=== PATIENT | female | born 1945 | race Caucasian/White ===

== ENCOUNTER 2021-01-02 11:42 | Inpatient (IN) | payer MEDICARE, BC ==
[~2021-01-02] VITALS: Ht 167.6 cm; Wt 55.8 kg
--- NOTE | 2021-01-02 11:56 | NUR ---
BIB FROM HOME, PER , PATIENT IS MORED DEPRESSED THAN USUAL, ALSO WORSENING DEMENTIA, TO ER BED 12, HOOKED TO MONITOR, CHANGED TO HOSP GOWN, WARM BLANKET PROVIDED, PATIENT AAO x 2. NAD NOTED. DR ELY AT BEDSIDE
--- NOTE | 2021-01-02 12:15 | NUR ---
URINE SAMPLE COLLECTED AND SENT TO LAB
--- NOTE | 2021-01-02 12:22 | NUR ---
BROOKE SORENSEN [phone]
--- NOTE | 2021-01-02 12:37 | NUR ---
GOING TO GPS 219.B
[2021-01-02] MEDS ORDERED: LAMO200T10 PO (12:39)
[2021-01-02] MEDS ORDERED: VORT20TA PO (12:39)
[2021-01-02] MEDS ORDERED: DONE10TA44 PO (12:39)
[2021-01-02] MEDS ORDERED: ATOR10TA PO (12:39)
[2021-01-02] MEDS ORDERED: LACT1CAP71 PO (12:39)
[2021-01-02] MEDS ORDERED: LOSA25TA27 PO (12:39)
[2021-01-02] MEDS ORDERED: MELA5TAB PO (12:39)
[2021-01-02] MEDS ORDERED: BIOT800T PO (12:39)
[2021-01-02] MEDS ORDERED: RISP0.2515 PO ×2 (12:39)
[2021-01-02] MEDS ORDERED: MEMA14CA PO (12:39)
[2021-01-02 12:40] LABS: BASOPHILS % (AUTO) 0.9 % (0.0-2.0); HEMATOCRIT 36 % (33-45); LYMPHOCYTES # (AUTO) 0.7 /CMM (0.8-4.8); LYMPHOCYTES % (AUTO) 13.6 % (20.0-44.0); MEAN CORPUSCULAR HGB CONC 33 g/dl (31.0-36.0); MEAN CORPUSCULAR VOLUME 93 fL (82-100); MONOCYTES # (AUTO) 0.4 /CMM (0.1-1.30); MONOCYTES % (AUTO) 7.2 % (2.0-12.0); NEUTROPHILS # (AUTO) 3.8 /CMM (1.8-8.9); NEUTROPHILS % (AUTO) 76.3 % (43.0-81.0); PLATELET COUNT (AUTO) 169 /CMM (150-450); RED BLOOD CELL COUNT(AUTO) 3.86 MIL/uL (4.0-5.2)
[2021-01-02 12:48] LABS: BILIRUBIN,URINE NEGATIVE (NEGATIVE); COLOR,URINE YELLOW (YELLOW); LEUKOCYTE ESTERASE ,URINE SMALL (NEGATIVE); NITRITE, URINE NEGATIVE (NEGATIVE); PH,URINE 6.5 (5.0-8.0); PROTEIN,URINE NEGATIVE (NEGATIVE); UGLUCOSE NEGATIVE (NEGATIVE); UROBILINOGEN,URINE 0.2 EU/dL (0.2)
[2021-01-02 12:48] LABS: CALCIUM, SERUM 8.8 mg/dL (8.5-10.1); CARBON DIOXIDE 31 mmol/L (21-32); CHLORIDE 106 mmol/L (98-107); CREATININE 0.7 mg/dL (0.6-1.3); GLUCOSE 108 mg/dL (74-106); POTASSIUM 3.5 mmol/L (3.5-5.1); SODIUM SERUM 143 mmol/L (136-145); UREA NITROGEN, BLOOD 14 mg/dL (7-18)
[2021-01-02 12:53] LABS: ALANINE AMINOTRANSFERASE 19 U/L (12-78); ALBUMIN 3.5 g/dL (3.4-5.0); ALCOHOL, BLOOD < 3 mg/dL (0-0); ALKALINE PHOSPHATASE 61 U/L (46-116); ASPARTATE AMINOTRANSFERASE 19 U/L (15-37); BILIRUBIN,DIRECT 0.1 mg/dL (0.0-0.2); BILIRUBIN,TOTAL 0.5 mg/dL (0.2-1.0); TOTAL PROTEIN, SERUM 6.3 g/dL (6.4-8.2)
[2021-01-02 12:54] LABS: ACETAMINOPHEN 0 ug/ml (10-30)
--- NOTE | 2021-01-02 13:04 | NUR ---
RAPID COVID SWAB DONE AND SENT TO LAB
[2021-01-02 13:33] LABS: BACTERIA,URINE Few /HPF (None Seen); RBC,URINE 0-2 /HPF (0-2); SQUAMOUS EPITHELIAL CELL,UR Few /HPF (None Seen)
--- NOTE | 2021-01-02 14:05 | NUR ---
RECEIVED RESULT FROM MAIN LAB: RAPID COVID NEGATIVE
--- NOTE | 2021-01-02 14:21 | NUR ---
RIDING TEACHER ED MELÉNDEZ AT BEDSIDE
--- NOTE | 2021-01-02 14:36 | NUR ---
REPORT GIVEN TO CARLOS TYLER OF GPS
--- NOTE | 2021-01-02 14:45 | NUR ---
PLACED ON 5150 HOLD FOR BEING GRAVELY DISABLED
[2021-01-02 16:10] VITALS: BP 141/81
--- NOTE | 2021-01-02 16:10 | NUR ---
STEM THRESHING MACHINE OPERATOR NOTE- MO ADMITTED 5150 GD AFTER BROUGHT PT TO HOSPITAL FOR WORSENING DEPRESSION AND DEMENTIA . ON FACE TO FACE ASSESSMENT, PT ON GURNEY, ALERT ORIENTED TO PERSON PLACE A BIT HARD OF HEARING IN RT EAR. INTERACTIVE THOUGH A BIT GUARDED AND PARANOID. PT DENIES SI HI AH VH. ADMITS TO BEING DEPRESSED. VS - BP- 141/81, HR- 68, RR- 18, T- 98.3, SATS AT 95% RA. ACCU CHECK BS- 79. PT HAS ALLERGY TO SULFA DRUGS. FULL CODE. REGULAR DIET. PT IS 5'6" AND 123 POUNDS. HER PMHX- HTN AND HYPERLIPIDEMIA. SKIN INTACT. NO OTHER MEDICAL ISSUES STATED OR PULLED FROM HX. LABS ARE WNL, TOX SCREEN IS NEG. PT IS COVID NEG. APPEARS FLAT WITHDRAWN AND QUIET. STATES "NOT SURE WHY IM HERE." ORIENTED TO UNIT, DR CAMPOS NOTIFIED OF ADMIT. ORDERS GIVEN AND RECEIVED. PT REFUSES PNA AND FLU VACCINE THOUGH SEEMS REFUSING BECAUSE OF APPREHENSION OR FEAR THAN INFORMED DECISION. ASSISTING ENCOURAGING . PT RIGHT INFO GIVEN. AWARE OF ADMIT.
[2021-01-02] MEDS ORDERED: TEMAZEPAM 7.5 MG CAPSULE PO PRN (17:00)
[2021-01-02] MEDS ORDERED: MAGNESIUM HYDROXIDE 30 ML UDC PO PRN (17:00)
[2021-01-02] MEDS ORDERED: clonazePAM 0.5 MG TABLET PO PRN (17:00)
[2021-01-02] MEDS ORDERED: BLOOD SUGAR DIAGNOSTIC 1 EACH STRIP IN ONE (17:00)
[2021-01-02] MEDS ORDERED: MAG HYDROX/AL HYDROX/SIMETH 30 ML UDC PO PRN (17:00)
[2021-01-02] MEDS ORDERED: ACETAMINOPHEN 325 MG TABLET PO PRN (17:00)
[2021-01-02 20:31] VITALS: BP 143/64
--- NOTE | 2021-01-02 20:57 | NUR ---
RN NOTES: ANXIETY PT.C/O FEELING ANXIOUS KLONOPIN 0.5 MG PO PRN GIVEN PER PT. REQUEST ,WILL CONTINUE TO MONITOR.
[2021-01-02] MEDS: DONEPEZIL 5 MG TABLET PO SCH (21:52)
[2021-01-03 07:25] LABS: ALBUMIN 3.2 g/dL (3.4-5.0); BILIRUBIN,TOTAL 0.6 mg/dL (0.2-1.0); CALCIUM, SERUM 8.8 mg/dL (8.5-10.1); CREATININE 0.7 mg/dL (0.6-1.3); POTASSIUM 3.9 mmol/L (3.5-5.1); TOTAL PROTEIN, SERUM 5.8 g/dL (6.4-8.2)
[2021-01-03 07:33] LABS: CHOLESTEROL 134 mg/dL (<200); HDL CHOLESTEROL 79 mg/dL (40-60); LDL 47 mg/dL (0-99); TRIGLYCERIDES 45 mg/dL (30-150)
[2021-01-03 08:00] VITALS: BP 101/60
[2021-01-03] MEDS: LOSARTAN POTASSIUM 25 MG TABLET PO SCH (09:00)
[2021-01-03] MEDS: LACTOBACILLUS RHAMNOSUS GG 1 EACH CAP.SPRINK PO SCH ×2 (09:21→17:03)
[2021-01-03] MEDS: MEMANTINE HCL 5 MG TABLET PO SCH ×2 (09:21→17:04)
[2021-01-03] MEDS: ATORVASTATIN 10 MG TABLET PO SCH (09:21)
[2021-01-03] MEDS ORDERED: LamoTRIgine 25 MG TABLET PO SCH (10:30)
[2021-01-03] MEDS: VENLAFAXINE 37.5 MG TABLET PO SCH (13:03)
[2021-01-03] MEDS: LamoTRIgine 100 MG TABLET PO SCH (13:04)
[2021-01-03] MEDS: risperiDONE 0.25 MG TABLET PO SCH ×2 (13:05→17:04)
--- NOTE | 2021-01-03 15:48 | NUR ---
resting in rm. most of day,no acute distress.med compliant.
[2021-01-03 16:00] VITALS: BP 120/74
[2021-01-03 20:14] VITALS: BP 93/56
[2021-01-03 21:30] VITALS: BP 109/68
[2021-01-03] MEDS: DONEPEZIL 5 MG TABLET PO SCH (21:38)
[2021-01-04 08:00] VITALS: BP 100/59
[2021-01-04] MEDS: LOSARTAN POTASSIUM 25 MG TABLET PO SCH (08:43)
[2021-01-04] MEDS: ATORVASTATIN 10 MG TABLET PO SCH (08:44)
[2021-01-04] MEDS: LamoTRIgine 100 MG TABLET PO SCH (08:44)
[2021-01-04] MEDS: LACTOBACILLUS RHAMNOSUS GG 1 EACH CAP.SPRINK PO SCH ×2 (08:44→16:48)
[2021-01-04] MEDS: MEMANTINE HCL 5 MG TABLET PO SCH ×2 (08:44→16:48)
[2021-01-04] MEDS: VENLAFAXINE 37.5 MG TABLET PO SCH (08:44)
[2021-01-04] MEDS: risperiDONE 0.25 MG TABLET PO SCH ×2 (08:45→16:48)
--- NOTE | 2021-01-04 15:52 | NUR ---
Initial Family Contact: SW called Edison Miller [phone] to gather collateral information. This BARBARA or other SW will keep the family involved in pt.s D/C planning.
--- NOTE | 2021-01-04 15:54 | NUR ---
Intitial Discharge Plan: The pt. comes from home [[address] [place] [address]] where she resides with , Edison Miller [phone]. Per pt. she would like to return home once ready for discharge. Edison, also stated that the pt. may return home once ready for discharge. This SW or other SW will continue to collaborate with IDT to ensure safe & proper Discharge planning.
[2021-01-04 16:00] VITALS: BP 107/65
[2021-01-04 20:51] VITALS: BP 109/52
--- NOTE | 2021-01-04 21:30 | NUR ---
RN NOTES: REFUSED SKIN ASSESSMENT PT. REFUSED SKIN ASSESSMENT AND PICTURES TAKEN , ENCOURAGED X3 RISKS AND BENEFITS EXPLINED, PT. STRONGLY REFUSED SKIN ASESSMENT, WILL CONTINUE TO MONITOR.
[2021-01-04] MEDS: DONEPEZIL 5 MG TABLET PO SCH (22:21)
[2021-01-05 08:00] VITALS: BP 103/56
[2021-01-05] MEDS: MEMANTINE HCL 5 MG TABLET PO SCH ×2 (08:13→16:56)
[2021-01-05] MEDS: VENLAFAXINE 37.5 MG TABLET PO SCH (08:13)
[2021-01-05] MEDS: LACTOBACILLUS RHAMNOSUS GG 1 EACH CAP.SPRINK PO SCH ×2 (08:14→16:55)
[2021-01-05] MEDS: risperiDONE 0.25 MG TABLET PO SCH ×2 (08:14→16:56)
[2021-01-05] MEDS: ATORVASTATIN 10 MG TABLET PO SCH (08:14)
[2021-01-05] MEDS: LamoTRIgine 100 MG TABLET PO SCH (08:14)
[2021-01-05] MEDS: LOSARTAN POTASSIUM 25 MG TABLET PO SCH (08:18)
--- NOTE | 2021-01-05 14:52 | NUR ---
Phone call: BARBARA spoke to (Edison MillerMzacna-[phone]) regarding discharge planning once the pt is medically cleared by the doctor. BARBARA has informed the pt met with BARBARA (Sharlene) for an assessment at the pt request to be discharged back to home. Plan: [employer] Code Enforcement Officer will coordinate with the closer to the discharge date. front services agent will be available as needed.
[2021-01-05 16:00] VITALS: BP 116/66
[2021-01-05 20:24] VITALS: BP 95/51
[2021-01-05] MEDS: DONEPEZIL 5 MG TABLET PO SCH (21:36)
[2021-01-06 08:00] VITALS: BP 137/71
[2021-01-06] MEDS: VENLAFAXINE 37.5 MG TABLET PO SCH (08:19)
[2021-01-06] MEDS: LACTOBACILLUS RHAMNOSUS GG 1 EACH CAP.SPRINK PO SCH ×2 (08:19→16:25)
[2021-01-06] MEDS: MEMANTINE HCL 5 MG TABLET PO SCH ×2 (08:19→16:25)
[2021-01-06] MEDS: risperiDONE 0.25 MG TABLET PO SCH ×2 (08:19→16:25)
[2021-01-06] MEDS: LOSARTAN POTASSIUM 25 MG TABLET PO SCH (08:19)
[2021-01-06] MEDS: ATORVASTATIN 10 MG TABLET PO SCH (08:20)
[2021-01-06] MEDS: LamoTRIgine 100 MG TABLET PO SCH (08:20)
--- NOTE | 2021-01-06 09:00 | NUR ---
RN NOTE- PT WITHDRAWN MINIMAL INTERACTION FLAT AFFECT POOR EYE CONTACT DOESN'T INITIATE CONVERSATION. DENIES SI HI AH VH PO INTAKE FAIR MED COMPLIANT
--- NOTE | 2021-01-06 14:59 | NUR ---
Current Outpatient Psychiatrist: Osiris Puga & Psychologist: Edison Leiva can both be reached at [phone] for RONI post discharge. Other SW will follow up with setting up apts. SW called the pt.'s , Edison Miller, to gather this information and addressed his questions. Family expressed appreciation. SW or other SW will be available as needed.
[2021-01-06 16:00] VITALS: BP 111/72
[2021-01-06 20:23] VITALS: BP 101/57
[2021-01-06] MEDS: DONEPEZIL 5 MG TABLET PO SCH (21:14)
[2021-01-07 08:00] VITALS: BP 110/63
[2021-01-07] MEDS: risperiDONE 0.25 MG TABLET PO SCH ×2 (08:18→16:01)
[2021-01-07] MEDS: VENLAFAXINE 37.5 MG TABLET PO SCH (08:18)
[2021-01-07] MEDS: LACTOBACILLUS RHAMNOSUS GG 1 EACH CAP.SPRINK PO SCH ×2 (08:18→16:01)
[2021-01-07] MEDS: MEMANTINE HCL 5 MG TABLET PO SCH ×2 (08:18→16:02)
[2021-01-07] MEDS: LamoTRIgine 100 MG TABLET PO SCH (08:18)
[2021-01-07] MEDS: LOSARTAN POTASSIUM 25 MG TABLET PO SCH (08:19)
[2021-01-07] MEDS: ATORVASTATIN 10 MG TABLET PO SCH (08:20)
--- NOTE | 2021-01-07 09:00 | NUR ---
RN NOTE- PT MORE INTERACTIVE THIS MORNING, BETTER EYE CONTACT INITIATED CONVERSATION, MED COMPLIANT, PO INTAKE GOOD . PT W BLUNTED AFFECT, DENIES SI HI AH VH
[2021-01-07 16:00] VITALS: BP 91/52
[2021-01-07 20:30] VITALS: BP 107/63
[2021-01-07] MEDS: DONEPEZIL 5 MG TABLET PO SCH (20:36)
--- NOTE | 2021-01-08 05:55 | NUR ---
MS. VALE IS ALERT AND LAST NIGHT WHEN NURSE COMMENT ON HER READING MATERIAL, BROUGHT ON A SMILE TO HER FACE. SHE WAS TALKING ABOUT THE BOOK AND THE AUTHOR. PLEASENT COOPERATIVE PATIENT TAKES HER MEDS
[2021-01-08 08:00] VITALS: BP 117/77
[2021-01-08] MEDS: ATORVASTATIN 10 MG TABLET PO SCH (09:03)
[2021-01-08] MEDS: LACTOBACILLUS RHAMNOSUS GG 1 EACH CAP.SPRINK PO SCH ×2 (09:03→16:29)
[2021-01-08] MEDS: LOSARTAN POTASSIUM 25 MG TABLET PO SCH (09:03)
[2021-01-08] MEDS: VENLAFAXINE 37.5 MG TABLET PO SCH (09:04)
[2021-01-08] MEDS: LamoTRIgine 100 MG TABLET PO SCH (09:04)
[2021-01-08] MEDS: MEMANTINE HCL 5 MG TABLET PO SCH ×2 (09:04→16:30)
[2021-01-08] MEDS: risperiDONE 0.25 MG TABLET PO SCH ×2 (09:04→16:30)
[2021-01-08 16:00] VITALS: BP 102/58
[2021-01-08 20:04] VITALS: BP 106/60
--- NOTE | 2021-01-08 20:31 | NUR ---
RN NOTE PATIENT IS A & O X 1-2, FORGETFUL & DISORGANIZED. PT. IS UNDER CARE OF DR. CAMPOS & VIRGIL STUBBS. PATIENT TRANSFERRED TO 3 WEST FLOOR ROOM 313-1 VIA ACLS PROTOCOL. ALL GPS CLOSET BELONGINGS, RIGHT HEARING AID IN PT'S EAR UPON TRANSFER & BATTERIES IN PT'S BELONGING BAG ALSO TRANSFERRED WITH THE PATIENT.
[2021-01-08 20:45] VITALS: BP 104/60
--- NOTE | 2021-01-08 20:45 | NUR ---
MS RN: CONTINUITY OF CARE Patient transferred via wheelchair form psych unit. Patient is A/O x2, calm., ambulatory, skin intact, no pressure injury. Oriented to room, unit, staff. Patient is [place], hearing aid present in right ear only. Patient is on 14 day hold, GPS overflow. Sitter at bedside.
[2021-01-08] MEDS: DONEPEZIL 5 MG TABLET PO SCH (22:37)
[2021-01-09 05:25] VITALS: BP 123/60
--- NOTE | 2021-01-09 06:26 | NUR ---
MS RN: END OF SHIFT REPORT Patient with adequate sleep last night, no agitation. Ambulates to the bathroom, no c/o pain. On 14 Days Hold. Sitter at bedside. Will endorse to oncoming RN.
--- NOTE | 2021-01-09 07:01 | NUR ---
RN NOTE: CALLED PATIENT'S AKANKSHA CANADA AT [phone] & INFORMED HIM REGARDING PATIENT'S TRANSFER TO ROOM 313-1, 3 WEST FLOOR OVERFLOW PATIENT. GAVE 3 WEST PHONE NUMBER TO DREAD. DREAD WOULD LIKE TO TALK TO DR. CAMPOS. LEFT A MESSAGE FOR DR. CAMPOS ON THE MESSAGE BOARD AT [employer] & WILL ENDORSE TO CHARGE NURSE WELL TO RELAY MSG TO DR. CAMPOS.
--- NOTE | 2021-01-09 07:15 | NUR ---
RN NOTES Patient transferred from [facility]-psych unit as overflow. Seen in bed resting, awake and verbally responsive; A/O x2, able to make needs known. Patient is [place], hearing aid present in right ear only. Breathing even and unlabored, tolerates room air. Currently on 14 day hold. Sitter seen at bedside w/ patient. Will continue to monitor.
[2021-01-09 08:00] VITALS: BP 138/60
[2021-01-09] MEDS: MEMANTINE HCL 5 MG TABLET PO SCH ×2 (08:55→18:13)
[2021-01-09] MEDS: LACTOBACILLUS RHAMNOSUS GG 1 EACH CAP.SPRINK PO SCH ×2 (08:55→18:13)
[2021-01-09] MEDS: risperiDONE 0.25 MG TABLET PO SCH ×2 (08:56→18:13)
[2021-01-09] MEDS: ATORVASTATIN 10 MG TABLET PO SCH (08:56)
[2021-01-09] MEDS: LOSARTAN POTASSIUM 25 MG TABLET PO SCH (08:56)
[2021-01-09] MEDS: LamoTRIgine 100 MG TABLET PO SCH (08:57)
--- NOTE | 2021-01-09 09:11 | NUR ---
RN NOTES PATIENT'S VENLAFAXINE MEDICATION NOT AVAILABLE AT [facility] AND AT [facility]. INFORMED PHARMACY AND WILL DELIVER MEDICATION.
[2021-01-09] MEDS: VENLAFAXINE 37.5 MG TABLET PO SCH (10:54)
--- NOTE | 2021-01-09 11:49 | NUR ---
Probable Cause Hearing: Pts [phone] hold was upheld for grave disability.
--- NOTE | 2021-01-09 15:24 | NUR ---
RN NOTES RECEIVED CALL FROM DR. CAMPOS, PSYCHIATRIST, AND INFORMED ABOUT PATIENT'S CURRENT STATUS. Addendum: 01/09/21 at 1525 by ROBERTA KNOTT RN INFORMED MD WELL THAT DREAD, PATIENT'S , WOULD LIKE TO SPEAK WITH HIM.
[2021-01-09 16:09] VITALS: BP 110/65
--- NOTE | 2021-01-09 16:14 | NUR ---
Family Contact: SW called the pts , Edison Miller ([phone]), and informed him of the pts current progress and stated that we do not have a discharge date for her at this time but that the SW would keep him updated. SW also stated that she will assist in securing an alternate psychiatrist who will be able to see the pt more often.
--- NOTE | 2021-01-09 18:45 | NUR ---
RN CLOSING NOTES Patient transferred from [facility]an-psych unit as overflow. Seen in bed resting, awake and verbally responsive; A/O x2, able to make needs known. Patient is [place], hearing aid present in right ear only. Breathing even and unlabored, tolerates room air. Currently on 14 day hold. Sitter seen at bedside w/ patient. Will continue to monitor.
[2021-01-09 20:00] VITALS: BP 101/67
[2021-01-09] MEDS: DONEPEZIL 5 MG TABLET PO SCH (21:44)
--- NOTE | 2021-01-10 06:46 | NUR ---
RN CLOSING NOTES: PATIENT IN BED, ASLEEP, EASILY AROUSABLE. WITH SITTER AT THE BEDSIDE. NO S/S OF DISTRESS NOTED. CALL LIGHT WITHIN REACH. BED IN LOWEST AND LOCKED POSITION.
--- NOTE | 2021-01-10 07:35 | NUR ---
GPS/RN OPENING NOTES RECEIVED PATIENT IS ON BED AWAKE ALERT AND ORIENTED X3. PATIENT IS ON ROOM AIR SATURATION 99%. PATIENT IN APPARENT RESPIRATORY DISTRESS NOTED. NO COMPLAINED OF PAIN AT THIS TIME. WILL CONTINUE TO MONITOR.
[2021-01-10 08:00] VITALS: BP 115/46
[2021-01-10] MEDS: LACTOBACILLUS RHAMNOSUS GG 1 EACH CAP.SPRINK PO SCH ×2 (09:01→18:20)
[2021-01-10] MEDS: VENLAFAXINE 37.5 MG TABLET PO SCH (09:01)
[2021-01-10] MEDS: ATORVASTATIN 10 MG TABLET PO SCH (09:01)
[2021-01-10] MEDS: LOSARTAN POTASSIUM 25 MG TABLET PO SCH (09:02)
[2021-01-10] MEDS: risperiDONE 0.25 MG TABLET PO SCH ×2 (09:02→18:20)
[2021-01-10] MEDS: MEMANTINE HCL 5 MG TABLET PO SCH ×2 (09:02→18:20)
[2021-01-10] MEDS: LamoTRIgine 100 MG TABLET PO SCH (09:02)
--- NOTE | 2021-01-10 16:00 | NUR ---
GPS/RN NOTES PATIENT TRANSFER TO GPS UNIT. REPORT WAS GIVEN TO EVELIN TYLER. PATIENT IS ALERT AND ORIENTED X3. PATIENT IN ROOM AIR SATURATION 99%. PATIENT IN NO APPARENT RESPIRATORY DISTRESS NOTED. NO COMPLAINED OF PAIN NOTED AT THIS TIME. ENDORSED PATIENT TO EVELIN FOR RONI.
[2021-01-10 21:07] VITALS: BP 93/59
[2021-01-10] MEDS: DONEPEZIL 5 MG TABLET PO SCH (21:36)
[2021-01-11 08:00] VITALS: BP 118/80
--- NOTE | 2021-01-11 08:17 | NUR ---
RN NOTE: MEDICATION REFUSAL FOR HYPERTENSION ELEVATED BP 201/83. PT IS ASYMPTOMATIC. ROUTING NORVASC ADMINISTERED. PT REFUSED HYDRALAZINE PRN. "I'VE ALWAYS HAD HIGH BLOOD PRESSURE. IT'S JUST BECAUSE I'M UPSET". EDUCATED PT RE RISKS RELATED TO ELEVATED BP. PT CON'T TO REFUSE X 3. PT ATTEMPTED TO SPIT NORVASC AND ZOLOFT INTO [place]. EVENTUALLY SWALLOWED MEDICATIONS. WILL MONITOR BP AFTER NORVASC ADMINISTRATION Addendum: 01/11/21 at 1406 by NASREEN MONZON RN NOTE FOR INCORRECT PATIENT
[2021-01-11] MEDS: VENLAFAXINE 37.5 MG TABLET PO SCH (08:43)
[2021-01-11] MEDS: LACTOBACILLUS RHAMNOSUS GG 1 EACH CAP.SPRINK PO SCH ×2 (08:43→16:15)
[2021-01-11] MEDS: MEMANTINE HCL 5 MG TABLET PO SCH ×2 (08:43→16:15)
[2021-01-11] MEDS: risperiDONE 0.25 MG TABLET PO SCH ×2 (08:44→16:15)
[2021-01-11] MEDS: ATORVASTATIN 10 MG TABLET PO SCH (08:44)
[2021-01-11] MEDS: LOSARTAN POTASSIUM 25 MG TABLET PO SCH (08:44)
[2021-01-11] MEDS: LamoTRIgine 100 MG TABLET PO SCH (08:44)
[2021-01-11 16:00] VITALS: BP 97/56
[2021-01-11 20:41] VITALS: BP 96/55
[2021-01-11] MEDS: DONEPEZIL 5 MG TABLET PO SCH (21:24)
[2021-01-12 08:00] VITALS: BP 130/81
[2021-01-12] MEDS: MEMANTINE HCL 5 MG TABLET PO SCH ×2 (08:34→16:32)
[2021-01-12] MEDS: ATORVASTATIN 10 MG TABLET PO SCH (08:34)
[2021-01-12] MEDS: LACTOBACILLUS RHAMNOSUS GG 1 EACH CAP.SPRINK PO SCH ×2 (08:35→16:32)
[2021-01-12] MEDS: risperiDONE 0.25 MG TABLET PO SCH ×2 (08:35→16:31)
[2021-01-12] MEDS: VENLAFAXINE 37.5 MG TABLET PO SCH (08:35)
[2021-01-12] MEDS: LamoTRIgine 100 MG TABLET PO SCH (08:35)
[2021-01-12] MEDS: LOSARTAN POTASSIUM 25 MG TABLET PO SCH (08:35)
[2021-01-12 16:00] VITALS: BP 105/62
[2021-01-12 19:44] VITALS: BP 90/51
[2021-01-12 21:00] VITALS: BP 99/58
[2021-01-12] MEDS: DONEPEZIL 5 MG TABLET PO SCH (21:11)
[2021-01-13 06:56] LABS: BASOPHILS # (AUTO) 0.1 /CMM (0.0-0.2); BASOPHILS % (AUTO) 0.6 % (0.0-2.0); EOSINOPHILS % (AUTO) 3.1 % (0.0-6.0); HEMATOCRIT 37 % (33-45); HEMOGLOBIN 12.2 g/dL (11.5-14.8); LYMPHOCYTES % (AUTO) 11.7 % (20.0-44.0); MEAN CORPUSCULAR HGB CONC 33 g/dl (31.0-36.0); MEAN CORPUSCULAR VOLUME 93 fL (82-100); MONOCYTES # (AUTO) 0.5 /CMM (0.1-1.30); MONOCYTES % (AUTO) 6.5 % (2.0-12.0); NEUTROPHILS # (AUTO) 6.5 /CMM (1.8-8.9); NEUTROPHILS % (AUTO) 78.1 % (43.0-81.0); PLATELET COUNT (AUTO) 146 /CMM (150-450); RED BLOOD CELL COUNT(AUTO) 4.01 MIL/uL (4.0-5.2); WHITE BLOOD COUNT (AUTO) 8.3 K/uL (4.3-11.0)
[2021-01-13 07:15] LABS: CALCIUM, SERUM 8.4 mg/dL (8.5-10.1); CREATININE 0.8 mg/dL (0.6-1.3); MAGNESIUM 2.2 mg/dL (1.8-2.4); POTASSIUM 4.3 mmol/L (3.5-5.1)
[2021-01-13 08:00] VITALS: BP 120/69
[2021-01-13] MEDS: MEMANTINE HCL 5 MG TABLET PO SCH ×2 (08:43→16:07)
[2021-01-13] MEDS: LACTOBACILLUS RHAMNOSUS GG 1 EACH CAP.SPRINK PO SCH ×2 (08:43→16:07)
[2021-01-13] MEDS: risperiDONE 0.25 MG TABLET PO SCH ×2 (08:43→16:07)
[2021-01-13] MEDS: VENLAFAXINE 37.5 MG TABLET PO SCH (08:43)
[2021-01-13] MEDS: LamoTRIgine 100 MG TABLET PO SCH (08:44)
[2021-01-13] MEDS: LOSARTAN POTASSIUM 25 MG TABLET PO SCH (08:44)
[2021-01-13] MEDS: ATORVASTATIN 10 MG TABLET PO SCH (08:49)
--- NOTE | 2021-01-13 11:28 | NUR ---
Family Contact: SW called the pts , Edison Miller ([phone]), and informed him that the pt is being discharged tomorrow and he state that he can come and crop picker the pt around 11am the following day.
[2021-01-13 16:00] VITALS: BP 91/53
[2021-01-13 20:18] VITALS: BP 103/56
[2021-01-13] MEDS: DONEPEZIL 5 MG TABLET PO SCH (21:15)
--- NOTE | 2021-01-14 07:59 | NUR ---
Dr. Luque gave an order to D/C hold and D/C home and to follow up with psych and medical doctors.
[2021-01-14 08:00] VITALS: BP 126/74
[2021-01-14] MEDS: MEMANTINE HCL 5 MG TABLET PO SCH (08:16)
[2021-01-14] MEDS: LACTOBACILLUS RHAMNOSUS GG 1 EACH CAP.SPRINK PO SCH (08:16)
[2021-01-14 08:17] VITALS: BP 126/74
[2021-01-14] MEDS: LOSARTAN POTASSIUM 25 MG TABLET PO SCH (08:17)
[2021-01-14] MEDS: VENLAFAXINE 37.5 MG TABLET PO SCH (08:17)
[2021-01-14] MEDS: LamoTRIgine 100 MG TABLET PO SCH (08:17)
[2021-01-14] MEDS: ATORVASTATIN 10 MG TABLET PO SCH (08:17)
[2021-01-14] MEDS: risperiDONE 0.25 MG TABLET PO SCH (08:17)
--- NOTE | 2021-01-14 09:49 | NUR ---
Mauri Aldridge NP made aware of the discharge and provided a prescriptions. Pt. without distress, denies suicidal and homicidal. Pt. signed the discharge papers and belongings ready. Pt. will be picked up by the Edison Miller with the tel # [phone].
--- NOTE | 2021-01-14 12:00 | NUR ---
Pt. left the unit via wheelchair with belongings and wheeled by staff to the lobby. Pt. was picked by the Edison Miller. Pt. and the were instructed on meds to continue at home and verbalizes understanding and advised to make a follow up with the psych and medical doctors. V/S taken: BP 123/73, MT 83, RR 18, temp 98.5 and oxygen sat 95%.
--- NOTE | 2021-01-16 11:36 | NUR ---
Discharge Note: Pt will be discharged to her home on January 14 located at [address] [address] [place] [address] where she resides with , Edison Miller ([phone]). Pt will be picked up by her around 11am. Upon discharge, pt appears to be in a euthymic mood and presents with an elated affect. Pt denies suicidal and homicidal ideation as well as auditory and visual hallucinations. Pt appears to be alert and oriented x4 (time, place, self and situation). Pt appears to be well groomed and appropriately dressed. Pt appears to be ambulatory with a steady gait. Pt was able to maintain appropriate eye contact and tone of speech. Pt agreed to the discharge plan to return to her home. Pt will follow up with her psychiatrist, Dr. Osiris Puga, located at [address], [place] [address]; ; fax of records was sent to: ([phone]). Pt will also follow up with her information resources manager, Dr. Candelario, located at [address] [place] [address]; . The multidisciplinary exit care form was done, printed, signed, and given to the patient.
== END 2021-01-14 12:09 | disposition home or self-care (01) | DRG 885 ==
LOC: ER 12:55 → GPS 16:51 → GPSOV 01-08 20:21 → GPS 01-10 16:42
PROVIDERS: ADMIT Psychiatry & Neurology Psychiatry; ATTEND Nurse Practitioner Family
DX: F32.3 Major depressive disorder, single episode, severe with psychotic features (principal); E44.1 Mild protein-calorie malnutrition; N39.0 Urinary tract infection, site not specified; F03.90 Unspecified dementia, unspecified severity, without behavioral disturbance, psychotic disturbance, mood disturbance, and anxiety; E78.5 Hyperlipidemia, unspecified; I10 Essential (primary) hypertension; Z87.891 Personal history of nicotine dependence; Z88.2 Allergy status to sulfonamides; Z79.899 Other long term (current) drug therapy; Z73.6 Limitation of activities due to disability
CPT/HCPCS: 36415; 80048-TC; 80053-TC; 80061-TC; 80076-TC; 81001; 82962-TC; 83735-TC; 84443-TC; 85025-TC; 87081-TC; 87086-TC; C9803; G0480

== ENCOUNTER 2021-12-08 10:10 | Inpatient (IN) | payer MEDICARE, BC ==
[~2021-12-08] VITALS: Ht 165.1 cm; Wt 50.3 kg
[~2021-12-08 10:10] MED LIST: ATOR10TA PO; BIOT800T PO; DONE10TA44 PO; LACT1CAP71 PO; LAMO200T10 PO; LOSA25TA27 PO; MELA5TAB PO; MEMA14CA PO; RISP0.2515 PO; VORT20TA PO
--- NOTE | 2021-12-08 10:23 | NUR ---
DR BANKS AT BEDSIDE
--- NOTE | 2021-12-08 10:23 | NUR ---
BIB FOR AUDITORY HALLUCINATION, TAKING HER CLOTHES OFF AND NOT SLEEPING
--- NOTE | 2021-12-08 10:36 | NUR ---
PT UNABLE TO PROVIDE URINE AT THIS TIME
--- NOTE | 2021-12-08 10:41 | NUR ---
SIGN LANGUAGE TRANSLATOR AT BEDSIDE
[2021-12-08 10:54] LABS: BASOPHILS % (AUTO) 0.3 % (0.0-2.0); EOSINOPHILS % (AUTO) 1.2 % (0.0-6.0); HEMATOCRIT 41 % (33-45); HEMOGLOBIN 13.6 g/dL (11.5-14.8); LYMPHOCYTES # (AUTO) 0.8 K/uL (0.8-4.8); MEAN CORPUSCULAR HGB CONC 34 g/dl (31.0-36.0); MEAN CORPUSCULAR VOLUME 95 fL (82-100); MONOCYTES # (AUTO) 0.5 K/uL (0.1-1.30); MONOCYTES % (AUTO) 8.3 % (2.0-12.0); NEUTROPHILS # (AUTO) 4.9 K/uL (1.8-8.9); NEUTROPHILS % (AUTO) 78.2 % (43.0-81.0); PLATELET COUNT (AUTO) 169 K/uL (150-450); RED BLOOD CELL COUNT(AUTO) 4.28 MIL/uL (4.0-5.2); WHITE BLOOD COUNT (AUTO) 6.3 K/uL (4.3-11.0)
--- NOTE | 2021-12-08 10:55 | NUR ---
COVID-19 ANTIGEN SWAB DONE AND SENT TO LAB
--- NOTE | 2021-12-08 11:05 | NUR ---
URINE SAMPLE COLLECTED VIA STRAIGHT CATHETER, SENT TO LAB
[2021-12-08 11:27] LABS: CALCIUM, SERUM 9.1 mg/dL (8.5-10.1); CARBON DIOXIDE 31 mmol/L (21-32); CHLORIDE 105 mmol/L (98-107); CREATININE 0.8 mg/dL (0.6-1.3); GLUCOSE 100 mg/dL (74-106); POTASSIUM 3.2 mmol/L (3.5-5.1); SODIUM SERUM 144 mmol/L (136-145); UREA NITROGEN, BLOOD 27 mg/dL (7-18)
[2021-12-08 11:31] LABS: ALANINE AMINOTRANSFERASE 24 U/L (12-78); ALBUMIN 4.1 g/dL (3.4-5.0); ALKALINE PHOSPHATASE 64 U/L (46-116); ASPARTATE AMINOTRANSFERASE 18 U/L (15-37); BILIRUBIN,DIRECT 0.2 mg/dL (0.0-0.2); BILIRUBIN,TOTAL 0.6 mg/dL (0.2-1.0); TOTAL PROTEIN, SERUM 7.1 g/dL (6.4-8.2)
[2021-12-08 11:32] LABS: ALCOHOL, BLOOD < 3 mg/dL (0-0)
[2021-12-08 11:38] LABS: ACETAMINOPHEN 0 ug/ml (10-30)
[2021-12-08 11:51] LABS: BILIRUBIN,URINE NEGATIVE (NEGATIVE); COLOR,URINE YELLOW (YELLOW); LEUKOCYTE ESTERASE ,URINE NEGATIVE (NEGATIVE); NITRITE, URINE NEGATIVE (NEGATIVE); PROTEIN,URINE TRACE mg/dl (NEGATIVE); UGLUCOSE NEGATIVE (NEGATIVE); UROBILINOGEN,URINE 0.2 EU/dL (0.2)
[2021-12-08] MEDS ORDERED: POTASSIUM CHLORIDE 20 MEQ TAB.PRT.SR PO ONE (12:04)
[2021-12-08] MEDS: POTASSIUM CHLORIDE 20 MEQ TAB.PRT.SR PO ONE ×2 (12:09→12:25)
--- NOTE | 2021-12-08 12:09 | NUR ---
PT REFUSED TO DRINK WATER, SHE SPAT AT WATER AND CLAIMED THEIR ARE VOICES IN HER HEAD TO NOT DRINK WATER. POTASSIUM PO MEDICATION WAS WITHHELD, AWARE.
[2021-12-08 12:12] LABS: BACTERIA,URINE Few /HPF (None Seen); MUCUS,URINE Few /LPF (None Seen); SQUAMOUS EPITHELIAL CELL,UR Few /HPF (None Seen)
--- NOTE | 2021-12-08 13:28 | NUR ---
FOOD PREPARATION SUPERVISOR AND PSYCH MD AT BEDSIDE.
[2021-12-08] MEDS ORDERED: VITAMIN B12 PO (14:37)
[2021-12-08] MEDS ORDERED: OMEP20CA15 PO (14:37)
[2021-12-08] MEDS ORDERED: VENL225T PO (14:37)
--- NOTE | 2021-12-08 17:09 | NUR ---
PATIENT GOING TO 212.1
--- NOTE | 2021-12-08 17:09 | NUR ---
BED GIVEN 212-1
--- NOTE | 2021-12-08 17:18 | NUR ---
REPORT GIVEN TO ROCKY FOR RONI
[2021-12-08] MEDS ORDERED: MAG HYDROX/AL HYDROX/SIMETH 30 ML UDC PO PRN (18:00)
[2021-12-08] MEDS ORDERED: MAGNESIUM HYDROXIDE 30 ML UDC PO PRN (18:00)
[2021-12-08] MEDS ORDERED: BLOOD SUGAR DIAGNOSTIC 1 EACH STRIP IN ONE (18:00)
[2021-12-08 18:01] VITALS: BP 135/79
--- NOTE | 2021-12-08 18:48 | NUR ---
Pt. arrived in the unit via a hospital with belongings and wheeled by ER staff. V/S taken, contraband done and accu check done (BS 84) . Dr. Murry made aware of the admission and with orders. Will endorse to the incoming nurse for the completion of the admission.
--- NOTE | 2021-12-08 19:05 | NUR ---
GPS SHIPYARD PAINTER HELPER NOTES: ADMITTED A 76-Y/O, FEMALE, PATIENT BIB FROM HOME. ADMITTED ON 5150 FOR GD. PER HOLD, PATIENT HAS BEEN OBSESSIVELY AND COMPULSIVELY MAKING MANY NOTES AND LEAVING THEM ALL OVER THE HOUSE. HEARING VOICES TELLING HER TO DO THINGS SUCH MAKE NOTES, THROW WATER ON THE NURSES AND TAKE OFF HE CLOTHES WHICH IS WHAT SHE DID ON THE WAY TO HOSPITAL. UPON FACE TO FACE EVALUATION, PT IS A/OX2, APPEARS DEPRESSED, DISROBING. PATIENT STILL HEARING VOICES AND TELLING HER TO TAKE OFF HER CLOTHES, TELLING HER TO DO THINGS. PATIENT REFUSED TO SIGN ALL ADMISSION PAPERWORK. SKIN ASSESSMENT DONE. WOUND CONSULT TRIGGERED. BELONGINGS WERE INVENTORIED AND CHECKED FOR CONTRABAND. OFFERED FLU/PNEUMONIA VACCINE BUT PATIENT REFUSED. PATIENT IS UNDER THE PSYCHIATRIC CARE OF DR. MORALES AND MEDICAL CARE OF DR. PIKE. BED IN LOW LOCKED POSITION. SAFETY PRECAUTIONS MAINTAINED. WILL CONTINUE TO MONITOR Q15 MINS FOR MOOD, SAFETY AND BEHAVIOR.
[2021-12-08 19:52] VITALS: BP 135/79
[2021-12-08] MEDS: ATORVASTATIN 10 MG TABLET PO SCH (21:26)
[2021-12-09 08:00] VITALS: BP 131/76
[2021-12-09] MEDS: LOSARTAN POTASSIUM 25 MG TABLET PO SCH (08:30)
[2021-12-09] MEDS: LACTOBACILLUS RHAMNOSUS GG 1 EACH CAP.SPRINK PO SCH (08:30)
[2021-12-09] MEDS: PANTOPRAZOLE 40 MG TABLET.DR PO SCH (08:30)
[2021-12-09] MEDS: MEMANTINE HCL 5 MG TABLET PO SCH ×2 (08:30→17:00)
[2021-12-09 08:39] LABS: ALBUMIN 3.4 g/dL (3.4-5.0); BILIRUBIN,TOTAL 0.5 mg/dL (0.2-1.0); CALCIUM, SERUM 8.9 mg/dL (8.5-10.1); CREATININE 0.7 mg/dL (0.6-1.3); POTASSIUM 3.8 mmol/L (3.5-5.1)
[2021-12-09] MEDS ORDERED: Medication Not On Formulary EA (Lactobacillus Combo No.11 (Probiotic) 1 EACH) PO SCH (09:00)
[2021-12-09] MEDS ORDERED: DONEPEZIL 5 MG TABLET PO SCH (09:00)
[2021-12-09] MEDS ORDERED: Medication Not On Formulary EA (Memantine HCl (Namenda Xr) 14 MG) PO SCH (09:00)
[2021-12-09] MEDS ORDERED: OMEPRAZOLE 20 MG CAPSULE.DR PO SCH (09:00)
[2021-12-09] MEDS ORDERED: Medication Not On Formulary EA (Donepezil Hcl 10 MG) PO SCH (09:00)
[2021-12-09] MEDS ORDERED: LamoTRIgine 100 MG TABLET PO SCH (09:00)
[2021-12-09] MEDS: LORAZEPAM 0.5 MG TABLET PO PRN (10:44)
[2021-12-09 12:41] LABS: CHOLESTEROL 189 mg/dL (<200); HDL CHOLESTEROL 88 mg/dL (40-60); LDL 85 mg/dL (0-99); TRIGLYCERIDES 47 mg/dL (30-150)
[2021-12-09 16:00] VITALS: BP 110/76
[2021-12-09 19:52] VITALS: BP 128/74
[2021-12-09] MEDS: risperiDONE 1 MG TABLET PO SCH (20:24)
[2021-12-09] MEDS: ATORVASTATIN 10 MG TABLET PO SCH (21:18)
[2021-12-09] MEDS: FLUVOXAMINE MALEATE 50 MG TABLET PO SCH (21:18)
[2021-12-09] MEDS ORDERED: FLUVOXAMINE MALEATE 50 MG TABLET PO SCH (22:00)
[2021-12-09] MEDS: TEMAZEPAM 7.5 MG CAPSULE PO PRN (22:58)
--- NOTE | 2021-12-09 22:58 | NUR ---
GPS RN NOTES: INSOMNIA PATIENT C/O INABILITY TO SLEEP. RESTORIL 7.5MG PO GIVEN PRN ORDER. WILL CONTINUE TO MONITOR.
[2021-12-10 08:00] VITALS: BP 106/78
[2021-12-10] MEDS: LACTOBACILLUS RHAMNOSUS GG 1 EACH CAP.SPRINK PO SCH (08:33)
[2021-12-10] MEDS: FLUVOXAMINE MALEATE 50 MG TABLET PO SCH ×3 (08:33→21:17)
[2021-12-10] MEDS: LOSARTAN POTASSIUM 25 MG TABLET PO SCH (08:33)
[2021-12-10] MEDS: risperiDONE 1 MG TABLET PO SCH ×2 (08:33→21:17)
[2021-12-10] MEDS: PANTOPRAZOLE 40 MG TABLET.DR PO SCH (08:33)
[2021-12-10 10:03] LABS: CHOLESTEROL 213 mg/dL (<200); LDL 94 mg/dL (0-99); TRIGLYCERIDES 67 mg/dL (30-150)
[2021-12-10 10:36] LABS: HDL CHOLESTEROL 96 mg/dL (40-60)
[2021-12-10 16:00] VITALS: BP 130/66
[2021-12-10] MEDS: ENSURE ENLIVE 237 ML LIQUID (VANILLA) PO SCH (17:47)
[2021-12-10 19:59] VITALS: BP 124/76
[2021-12-10] MEDS: ATORVASTATIN 10 MG TABLET PO SCH (21:17)
[2021-12-11] MEDS: ENSURE ENLIVE 237 ML LIQUID (VANILLA) PO SCH ×2 (07:45→16:03)
[2021-12-11 08:00] VITALS: BP 128/71
[2021-12-11] MEDS: PANTOPRAZOLE 40 MG TABLET.DR PO SCH (08:08)
[2021-12-11] MEDS: risperiDONE 1 MG TABLET PO SCH ×2 (08:08→20:53)
[2021-12-11] MEDS: LOSARTAN POTASSIUM 25 MG TABLET PO SCH (08:08)
[2021-12-11] MEDS: FLUVOXAMINE MALEATE 50 MG TABLET PO SCH ×4 (08:08→23:21)
[2021-12-11] MEDS: LACTOBACILLUS RHAMNOSUS GG 1 EACH CAP.SPRINK PO SCH (08:09)
--- NOTE | 2021-12-11 09:06 | NUR ---
BARBARA Initial Discharge Note: Patient currently lives with her located at [address] [place] [address]; ([phone]). Pt lives with Chevy ([phone]). BARBARA will work with the family, MD, and treatment team to help coordinate approriate discharge.
--- NOTE | 2021-12-11 09:06 | NUR ---
SW Admit Note: Patient was brought to the hospital by Chevy who stated pt was acting bizarre at home and has been hearing voices. Pt has been placed on a 5150 hold for GD. Patient currently lives with her located at [address] [place] [address]; ([phone]) and wants to return back home upon dc.
--- NOTE | 2021-12-11 10:03 | NUR ---
BARBARA Family Contact: BARBARA spoke with patient's Edison ([phone]) and discussed treatment plan and gathered collateral. Edison stated that he is the DPOA and will send this SW a copy. He stated he would want pt back home upon dc.
[2021-12-11 16:26] VITALS: BP 105/68
[2021-12-11 19:48] VITALS: BP 110/63
[2021-12-11] MEDS: ATORVASTATIN 10 MG TABLET PO SCH (21:15)
--- NOTE | 2021-12-11 21:23 | NUR ---
GPS RN NOTES: LUVOX 25MG PARTIAL DOSE WASTED PER MD ORDER.
[2021-12-11] MEDS: TEMAZEPAM 7.5 MG CAPSULE PO PRN (21:38)
--- NOTE | 2021-12-11 21:40 | NUR ---
GPS RN NOTES: RESTORIL 7.5MG GIVEN FOR SLEEP AT 8. WILL CONTINUE TO MONITOR.
[2021-12-11] MEDS: risperiDONE 0.25 MG TABLET PO SCH (22:00)
--- NOTE | 2021-12-11 23:35 | NUR ---
GPS RN NOTES: UNABLE TO ADMINISTER NEW DOSE BECAUSE PATIENT HAD ALREADY BEEN GIVEN RISPERDAL 1MG AT 2052 AND LUVOX 25MG AT 2114 ORDERED.
[2021-12-12] MEDS: PANTOPRAZOLE 40 MG TABLET.DR PO SCH (07:30)
[2021-12-12 08:00] VITALS: BP 110/61
[2021-12-12] MEDS: ENSURE ENLIVE 237 ML LIQUID (VANILLA) PO SCH ×2 (08:00→17:57)
[2021-12-12] MEDS: LOSARTAN POTASSIUM 25 MG TABLET PO SCH (08:58)
[2021-12-12] MEDS: LACTOBACILLUS RHAMNOSUS GG 1 EACH CAP.SPRINK PO SCH (08:58)
[2021-12-12] MEDS: FLUVOXAMINE MALEATE 50 MG TABLET PO SCH ×3 (08:59→21:20)
[2021-12-12] MEDS: risperiDONE 0.25 MG TABLET PO SCH ×2 (09:03→21:20)
[2021-12-12 16:00] VITALS: BP 110/65
[2021-12-12 20:00] VITALS: BP 101/59
[2021-12-12] MEDS: ATORVASTATIN 10 MG TABLET PO SCH (21:20)
[2021-12-12] MEDS: ACETAMINOPHEN 325 MG TABLET PO PRN (21:21)
[2021-12-12] MEDS: TEMAZEPAM 7.5 MG CAPSULE PO PRN (22:13)
--- NOTE | 2021-12-12 22:14 | NUR ---
GPS RN NOTES: RESTORIL 7.5MG 1CAP GIVEN PO AT 2213. WILL CONTINUE TO MONITOR.
[2021-12-13] MEDS: PANTOPRAZOLE 40 MG TABLET.DR PO SCH (07:54)
[2021-12-13] MEDS: ENSURE ENLIVE 237 ML LIQUID (VANILLA) PO SCH ×2 (07:54→17:12)
[2021-12-13 08:00] VITALS: BP 100/59
[2021-12-13] MEDS: LOSARTAN POTASSIUM 25 MG TABLET PO SCH (08:02)
[2021-12-13] MEDS: LACTOBACILLUS RHAMNOSUS GG 1 EACH CAP.SPRINK PO SCH (08:03)
[2021-12-13] MEDS: FLUVOXAMINE MALEATE 50 MG TABLET PO SCH ×2 (08:03→13:15)
--- NOTE | 2021-12-13 08:49 | NUR ---
WOUND CARE CONSULT: LIMITED ASSESSMENT DUE TO PT JUST FELL ASLEEP AND PREVIOUSLY AGITATED PER RN. PT NOTED TO HAVE DRY ABRASIONS TO RT LOWER LEG, PRESENT ON ADMISSION. DPM CONSULT CALLED TO DR HAMPAPUR. DOMÍNGUEZ IN AGREEMENT WITH PLAN OF CARE.
[2021-12-13] MEDS: risperiDONE 0.25 MG TABLET PO SCH ×2 (10:23→21:06)
--- NOTE | 2021-12-13 13:22 | NUR ---
BARBARA Family Contact: BARBARA received a call from patient's Edison ([phone]) and requested to speak to Dr. Murry. This blog writer notified the doctor.
--- NOTE | 2021-12-13 13:30 | NUR ---
DPOA: Patient's Edison ([phone]) sent DPOA documents and this SW placed in chart. Edison is DPOA.
[2021-12-13 16:00] VITALS: BP 103/70
[2021-12-13] MEDS: VITAMINS A AND D 56.7 GM TUBE TP SCH (17:07)
--- NOTE | 2021-12-13 18:11 | NUR ---
RN-CO: DR MORALES MADE AWARE OF PT'S POOR PO INTAKE AND SHE IS MORE PARANOID.
--- NOTE | 2021-12-13 18:15 | NUR ---
RN-CO" DR MORALES ORDERED CMP AND UA NOTED.
[2021-12-13 20:00] VITALS: BP 112/64
[2021-12-13] MEDS: ACETAMINOPHEN 325 MG TABLET PO PRN (21:06)
[2021-12-13] MEDS: ATORVASTATIN 10 MG TABLET PO SCH (21:06)
[2021-12-13] MEDS ORDERED: MIRTAZAPINE 15 MG TABLET PO SCH ×2 (22:00)
[2021-12-13] MEDS: TEMAZEPAM 7.5 MG CAPSULE PO PRN (22:00)
--- NOTE | 2021-12-13 22:04 | NUR ---
GPS RN NOTES: RESTORIL 7.5MG/1CAP GIVEN PO FOR INSOMNIA AT 2200. WILL CONTINUE TO MONITOR.
[2021-12-14 08:00] VITALS: BP 118/55
[2021-12-14 08:03] LABS: ALBUMIN 3.2 g/dL (3.4-5.0); BILIRUBIN,TOTAL 0.6 mg/dL (0.2-1.0); CALCIUM, SERUM 8.9 mg/dL (8.5-10.1); CREATININE 0.6 mg/dL (0.6-1.3); POTASSIUM 3.8 mmol/L (3.5-5.1); TOTAL PROTEIN, SERUM 5.8 g/dL (6.4-8.2)
[2021-12-14] MEDS: ENSURE ENLIVE 237 ML LIQUID (VANILLA) PO SCH ×2 (08:07→17:10)
[2021-12-14] MEDS: PANTOPRAZOLE 40 MG TABLET.DR PO SCH (08:27)
[2021-12-14] MEDS: LOSARTAN POTASSIUM 25 MG TABLET PO SCH (08:39)
[2021-12-14] MEDS: LACTOBACILLUS RHAMNOSUS GG 1 EACH CAP.SPRINK PO SCH (08:39)
[2021-12-14] MEDS: VITAMINS A AND D 56.7 GM TUBE TP SCH ×2 (09:08→17:11)
[2021-12-14] MEDS: risperiDONE 0.25 MG TABLET PO SCH (09:08)
--- NOTE | 2021-12-14 13:42 | NUR ---
Court Hearing: Patient's court hearing for 1640 was today and it was upheld for GD.
[2021-12-14 15:37] LABS: BILIRUBIN,URINE NEGATIVE (NEGATIVE); COLOR,URINE YELLOW (YELLOW); LEUKOCYTE ESTERASE ,URINE NEGATIVE (NEGATIVE); NITRITE, URINE POSITIVE (NEGATIVE); PH,URINE 6.5 (5.0-8.0); PROTEIN,URINE NEGATIVE (NEGATIVE); UGLUCOSE NEGATIVE (NEGATIVE); UROBILINOGEN,URINE 0.2 EU/dL (0.2)
[2021-12-14 15:51] LABS: BACTERIA,URINE 3+ /HPF (None Seen)
[2021-12-14 16:00] VITALS: BP 102/74
--- NOTE | 2021-12-14 17:22 | NUR ---
RN-NOTES DR. PIKE NOTIFIED OF THE URINE RESULTS TODAY WITH T.O ORDER OF KEFLEX 500MG P.O TID X7 DAYS. NOTED AND CARRIED OUT.
[2021-12-14] MEDS: risperiDONE 1 MG TABLET PO SCH (19:43)
[2021-12-14 20:45] VITALS: BP 99/72
[2021-12-14] MEDS: ATORVASTATIN 10 MG TABLET PO SCH (21:29)
[2021-12-14] MEDS: TEMAZEPAM 7.5 MG CAPSULE PO PRN (22:06)
--- NOTE | 2021-12-14 22:09 | NUR ---
GPS RN NOTE: INSOMNIA PATIENT VERBALIZED THAT SHE IS UNABLE TO SLEEP AT THIS TIME. PRN RESTORIL 7.5 MG 1 CAP PO ADMINISTERED. WILL CONTINUE TO MONITOR.
[2021-12-15] MEDS: ENSURE ENLIVE 237 ML LIQUID (VANILLA) PO SCH ×2 (07:56→16:34)
[2021-12-15] MEDS: PANTOPRAZOLE 40 MG TABLET.DR PO SCH (07:57)
[2021-12-15] MEDS: risperiDONE 1 MG TABLET PO SCH ×2 (07:57→19:32)
[2021-12-15 08:00] VITALS: BP 113/70
[2021-12-15] MEDS: LACTOBACILLUS RHAMNOSUS GG 1 EACH CAP.SPRINK PO SCH (08:06)
[2021-12-15] MEDS: LOSARTAN POTASSIUM 25 MG TABLET PO SCH (08:06)
[2021-12-15] MEDS: VITAMINS A AND D 56.7 GM TUBE TP SCH ×2 (08:08→17:16)
[2021-12-15] MEDS: CEPHALEXIN MONOHYDRATE 500 MG CAPSULE PO SCH ×3 (08:08→16:34)
[2021-12-15 16:00] VITALS: BP 99/59
--- NOTE | 2021-12-15 19:45 | NUR ---
GPS RN NOTE: BLOOD PRESSURE CURRENT BLOOD PRESSURE 90/64, PER CHARGE NURSE, VITALS ARE AT BASELINE D/T POOR PO INTAKE OF FLUIDS. WILL CONT TO MONITOR
[2021-12-15 19:50] VITALS: BP 90/64
[2021-12-15 20:04] VITALS: BP 90/64
[2021-12-15] MEDS: ATORVASTATIN 10 MG TABLET PO SCH (21:03)
[2021-12-16 08:00] VITALS: BP 105/66
[2021-12-16] MEDS: ENSURE ENLIVE 237 ML LIQUID (VANILLA) PO SCH ×2 (08:54→17:28)
[2021-12-16] MEDS: CEPHALEXIN MONOHYDRATE 500 MG CAPSULE PO SCH ×3 (08:54→17:29)
[2021-12-16] MEDS: LACTOBACILLUS RHAMNOSUS GG 1 EACH CAP.SPRINK PO SCH (08:54)
[2021-12-16] MEDS: PANTOPRAZOLE 40 MG TABLET.DR PO SCH (08:54)
[2021-12-16] MEDS: risperiDONE 1 MG TABLET PO SCH ×2 (08:54→20:06)
[2021-12-16] MEDS: LOSARTAN POTASSIUM 25 MG TABLET PO SCH (08:55)
[2021-12-16] MEDS: VITAMINS A AND D 56.7 GM TUBE TP SCH ×2 (08:55→17:29)
[2021-12-16 16:00] VITALS: BP 119/69
[2021-12-16 20:05] VITALS: BP 101/51
[2021-12-16] MEDS: ATORVASTATIN 10 MG TABLET PO SCH (21:46)
[2021-12-16] MEDS: LORAZEPAM 0.5 MG TABLET PO PRN (23:02)
--- NOTE | 2021-12-16 23:05 | NUR ---
GPS RN NOTE: ANXIETY PATIENT IS ANXIOUS, RESTLESS, PARANOID. PRN ATIVAN 0.5 MG PO ADMINISTERED. WILL CONTINUE TO MONITOR FOR ANY CHANGES.
[2021-12-17 08:00] VITALS: BP 100/58
[2021-12-17] MEDS: ENSURE ENLIVE 237 ML LIQUID (VANILLA) PO SCH ×2 (08:00→17:44)
[2021-12-17] MEDS: LOSARTAN POTASSIUM 25 MG TABLET PO SCH (08:00)
[2021-12-17] MEDS: PANTOPRAZOLE 40 MG TABLET.DR PO SCH (08:02)
[2021-12-17] MEDS: risperiDONE 1 MG TABLET PO SCH ×2 (08:05→20:20)
[2021-12-17] MEDS: CEPHALEXIN MONOHYDRATE 500 MG CAPSULE PO SCH ×3 (08:05→17:44)
[2021-12-17] MEDS: LACTOBACILLUS RHAMNOSUS GG 1 EACH CAP.SPRINK PO SCH (08:05)
[2021-12-17] MEDS: VITAMINS A AND D 56.7 GM TUBE TP SCH ×2 (08:07→17:44)
[2021-12-17 16:00] VITALS: BP 109/78
[2021-12-17 20:19] VITALS: BP 102/65
--- NOTE | 2021-12-17 20:30 | NUR ---
GPS RN NOTES: RISPERDAL 1.5MG ADMINISTERED PO. PARTIAL DOSE 0.5MG WASTED ORDERED.
[2021-12-17] MEDS: TEMAZEPAM 7.5 MG CAPSULE PO PRN (21:55)
[2021-12-17] MEDS: ATORVASTATIN 10 MG TABLET PO SCH (21:55)
--- NOTE | 2021-12-17 21:59 | NUR ---
GPS RN NOTES: RESTORIL 7.5MG GIVEN PO FOR SLEEP AT 2155. WILL CONTINUE TO MONITOR.
--- NOTE | 2021-12-18 03:31 | NUR ---
GPS RN NOTES: WEEKLY SKIN ASSESSMENT DONE. PICTURES TAKEN AND PLACED IN PATIENT CHART, NO NEW SKIN ISSUES NOTED.
--- NOTE | 2021-12-18 04:06 | NUR ---
GPS RN NOTES: PATIENT CALLED AND NOTIFIED STAFF THAT PATIENT HAS A RIGHT EAR HEARING AID. UPON CHECKING PATIENT HAS NO HEARING AID ON HER AND NEITHER IS IT LISTED ON PATIENT BELONGINGS FORM IN GPS BUT IT IS LISTED IN THE ER PATIENT BELONGING FORM. PATIENT BELONGINGS CHECKED INCLUDING ALL PANT AND SHIRT POCKETS BUT THERE WAS NO HEARING AID. THE MORNING MAINTENANCE TECHNICIAN WHO DID INVENTORIED PATIENT BELONGINGS DURING ADMISSION WAS CONTACTED BUT STATES SHE DID NOT SEE THE HEARING AID DURING ADMISSION. ER WAS THEN CONTACTED BUT PER PA, THEY DON'T REMOVE PATIENT HEARING AID WHEN PATIENTS GET ADMITTED WITH HEARING AID.
--- NOTE | 2021-12-18 07:00 | NUR ---
GPS RN CLOSING NOTES: PATIENT IS CURRENTLY SLEEPING IN BED. PATIENT SLEPT 6HR THIS SHIFT. NO S/S OF DISTRESS. RESPIRATION EVEN AND UNLABORED WITH EQUAL RISE AND FALL OF THE CHEST, ON ROOM AIR. BED IN LOW LOCKED POSITION, SIDE RAILS UP X2 FOR SAFETY. ALL PATIENT CARE NEEDS HAVE BEEN MET ANTICIPATED. WILL CONTINUE TO MONITOR AND ENDORSE TO AM SHIFT.
[2021-12-18 08:00] VITALS: BP 97/55
[2021-12-18] MEDS: LOSARTAN POTASSIUM 25 MG TABLET PO SCH (08:24)
[2021-12-18] MEDS: VITAMINS A AND D 56.7 GM TUBE TP SCH ×2 (08:24→17:13)
[2021-12-18] MEDS: LACTOBACILLUS RHAMNOSUS GG 1 EACH CAP.SPRINK PO SCH (08:25)
[2021-12-18] MEDS: PANTOPRAZOLE 40 MG TABLET.DR PO SCH (08:25)
[2021-12-18] MEDS: risperiDONE 1 MG TABLET PO SCH ×2 (08:25→20:16)
[2021-12-18] MEDS: CEPHALEXIN MONOHYDRATE 500 MG CAPSULE PO SCH ×3 (08:25→17:13)
[2021-12-18] MEDS: ENSURE ENLIVE 237 ML LIQUID (VANILLA) PO SCH ×2 (08:29→17:12)
[2021-12-18 16:00] VITALS: BP 103/53
[2021-12-18 20:00] VITALS: BP 111/68
--- NOTE | 2021-12-18 20:22 | NUR ---
GPS RN NOTES: RISPERDAL 1.5MG ADMINISTERED PO. PARTIAL DOSE 0.5MG WASTED ORDERED.
[2021-12-18] MEDS: ATORVASTATIN 10 MG TABLET PO SCH (21:55)
[2021-12-18] MEDS: MIRTAZAPINE 15 MG TABLET PO SCH (21:55)
[2021-12-18] MEDS: TEMAZEPAM 7.5 MG CAPSULE PO PRN (22:31)
--- NOTE | 2021-12-18 22:32 | NUR ---
GPS RN NOTES: RESTORIL 7.5MG GIVEN PO FOR SLEEP AT 2231. WILL CONTINUE TO MONITOR.
[2021-12-19] MEDS: PANTOPRAZOLE 40 MG TABLET.DR PO SCH (07:30)
[2021-12-19] MEDS: risperiDONE 1 MG TABLET PO SCH ×2 (07:30→19:42)
[2021-12-19 08:00] VITALS: BP 110/57
[2021-12-19] MEDS: ENSURE ENLIVE 237 ML LIQUID (VANILLA) PO SCH ×2 (08:00→17:53)
[2021-12-19] MEDS: LOSARTAN POTASSIUM 25 MG TABLET PO SCH (08:44)
[2021-12-19] MEDS: CEPHALEXIN MONOHYDRATE 500 MG CAPSULE PO SCH ×3 (08:45→17:53)
[2021-12-19] MEDS: LACTOBACILLUS RHAMNOSUS GG 1 EACH CAP.SPRINK PO SCH (08:45)
[2021-12-19] MEDS: VITAMINS A AND D 56.7 GM TUBE TP SCH ×2 (09:18→17:54)
[2021-12-19 16:00] VITALS: BP 118/64
--- NOTE | 2021-12-19 19:44 | NUR ---
GPS RN NOTES: RISPERDAL 1.5MG ADMINISTERED PO. PARTIAL DOSE 0.5MG WASTED ORDERED.
[2021-12-19 20:00] VITALS: BP 102/69
[2021-12-19] MEDS ORDERED: risperiDONE 1 MG TABLET PO ONE (21:30)
[2021-12-19] MEDS: ATORVASTATIN 10 MG TABLET PO SCH (22:18)
[2021-12-19] MEDS: MIRTAZAPINE 15 MG TABLET PO SCH (22:18)
--- NOTE | 2021-12-19 22:20 | NUR ---
GPS RN NOTES: RISPERDAL 0.5MG ADMINISTERED PO. PARTIAL DOSE 0.5MG WASTED ORDERED.
[2021-12-19] MEDS: TEMAZEPAM 7.5 MG CAPSULE PO PRN (22:56)
--- NOTE | 2021-12-19 22:57 | NUR ---
GPS RN NOTES: RESTORIL 7.5MG GIVEN PO FOR SLEEP AT 2256. WILL CONTINUE TO MONITOR.
[2021-12-20 08:00] VITALS: BP 114/71
[2021-12-20] MEDS: risperiDONE 1 MG TABLET PO SCH ×2 (08:14→16:42)
[2021-12-20] MEDS: PANTOPRAZOLE 40 MG TABLET.DR PO SCH (08:14)
[2021-12-20] MEDS: CEPHALEXIN MONOHYDRATE 500 MG CAPSULE PO SCH ×3 (08:14→16:42)
[2021-12-20] MEDS: LACTOBACILLUS RHAMNOSUS GG 1 EACH CAP.SPRINK PO SCH (08:14)
[2021-12-20] MEDS: LOSARTAN POTASSIUM 25 MG TABLET PO SCH (08:15)
[2021-12-20] MEDS: ENSURE ENLIVE 237 ML LIQUID (VANILLA) PO SCH ×2 (08:16→16:40)
[2021-12-20] MEDS: VITAMINS A AND D 56.7 GM TUBE TP SCH ×2 (08:17→16:40)
[2021-12-20 16:00] VITALS: BP 104/75
[2021-12-20 20:00] VITALS: BP 107/60
[2021-12-20] MEDS: TEMAZEPAM 7.5 MG CAPSULE PO PRN (20:49)
[2021-12-20] MEDS: ATORVASTATIN 10 MG TABLET PO SCH (20:49)
[2021-12-20] MEDS: MIRTAZAPINE 15 MG TABLET PO SCH (20:49)
[2021-12-21 08:00] VITALS: BP 114/66
[2021-12-21] MEDS: PANTOPRAZOLE 40 MG TABLET.DR PO SCH (08:11)
[2021-12-21] MEDS: ENSURE ENLIVE 237 ML LIQUID (VANILLA) PO SCH ×2 (08:12→16:25)
[2021-12-21] MEDS: CEPHALEXIN MONOHYDRATE 500 MG CAPSULE PO SCH ×3 (08:12→16:50)
[2021-12-21] MEDS: LACTOBACILLUS RHAMNOSUS GG 1 EACH CAP.SPRINK PO SCH (08:12)
[2021-12-21] MEDS: risperiDONE 1 MG TABLET PO SCH ×2 (08:12→16:50)
[2021-12-21] MEDS: LOSARTAN POTASSIUM 25 MG TABLET PO SCH (08:12)
[2021-12-21] MEDS: VITAMINS A AND D 56.7 GM TUBE TP SCH ×2 (08:52→16:27)
--- NOTE | 2021-12-21 09:41 | NUR ---
BARBARA Coordination of Care: Pt will follow up with her psychiatrist, Dr. Osiris Puga, located at [address] [place] [address] [address], [place] [address]; ; fax of records was sent to: ([phone]) and scheduled appointment on January 02 at 3:15PM.
[2021-12-21 16:00] VITALS: BP 90/60
[2021-12-21 20:00] VITALS: BP 110/72
[2021-12-21] MEDS: ATORVASTATIN 10 MG TABLET PO SCH (21:09)
[2021-12-21] MEDS: MIRTAZAPINE 15 MG TABLET PO SCH (21:10)
[2021-12-21] MEDS: TEMAZEPAM 7.5 MG CAPSULE PO PRN (21:33)
--- NOTE | 2021-12-22 07:57 | NUR ---
Dr. Murry gave an order to D/C hold and D/C home and to follow up with the psych and medical doctors. Psychiatrist provided prescriptions to the pt.
[2021-12-22 08:00] VITALS: BP 119/58
--- NOTE | 2021-12-22 08:09 | NUR ---
BARBARA Initial Discharge Plan: Pt will be discharged home located at [address] [address] where she resides with , Edison Miller ([phone]). Pt will be picked up by her around 11am. Upon discharge, pt appears to be in a euthymic mood and presents with an elated affect. Pt denies suicidal and homicidal ideation as well as auditory and visual hallucinations. Pt appears to be alert and oriented x4 (time, place, self and situation). Pt appears to be well groomed and appropriately dressed. Pt appears to be ambulatory with a steady gait. Pt was able to maintain appropriate eye contact and tone of speech. Pt agreed to the discharge plan to return to her home. Pt will follow up with her psychiatrist, Dr. Osiris Puga, located at [address] [place] [address] [address] [address]; ; fax of records was sent to: ([phone]) and scheduled appointment on January 02 at 3:15PM. Pt will also follow up with her field horticultural specialty grower, Dr. Candelario, located at [address] [place] [address]; . The multidisciplinary exit care form was done, printed, signed, and given to the patient. Addendum: 12/22/21 at 1058 by BARBARA BARAJAS BARBARA Initial Discharge Plan: Pt will be discharged home located at [address] [address] where she resides with , Edison Miller ([phone]). Pt will be picked up by her around 11am. Upon discharge, pt appears to be in a euthymic mood and presents with an elated affect. Pt denies suicidal and homicidal ideation as well as auditory and visual hallucinations. Pt appears to be alert and oriented x2 (self, situation). Pt appears to be well groomed and appropriately dressed. Pt appears to be ambulatory with a steady gait. Pt was able to maintain appropriate eye contact and tone of speech. Pt agreed to the discharge plan to return to her home. Pt will follow up with her psychiatrist, Dr. Osiris Puga, located at [address], [place] [address]; ; fax of records was sent to: ([phone]) and scheduled appointment on January 02 at 3:15PM. Pt will also follow up with her field horticultural specialty grower, Dr. Candelario, located at [address] [place] [address]; . The multidisciplinary exit care form was done, printed, signed, and given to the patient.
[2021-12-22] MEDS: VITAMINS A AND D 56.7 GM TUBE TP SCH (08:12)
[2021-12-22] MEDS: ENSURE ENLIVE 237 ML LIQUID (VANILLA) PO SCH (08:12)
[2021-12-22] MEDS: LACTOBACILLUS RHAMNOSUS GG 1 EACH CAP.SPRINK PO SCH (08:14)
[2021-12-22] MEDS: PANTOPRAZOLE 40 MG TABLET.DR PO SCH (08:14)
[2021-12-22] MEDS: CEPHALEXIN MONOHYDRATE 500 MG CAPSULE PO SCH (08:14)
[2021-12-22 08:15] VITALS: BP 119/58
[2021-12-22] MEDS: LOSARTAN POTASSIUM 25 MG TABLET PO SCH (08:15)
[2021-12-22] MEDS: risperiDONE 1 MG TABLET PO SCH (08:15)
--- NOTE | 2021-12-22 11:00 | NUR ---
GPS/RN PT DISCHARGED HOME WITH HER VIA PRIVATE CAR. NO SI OR HI AT THE TIME OF DISCHARGE. HOLD DISCONTINUED.PROPERTY RETURNED. ID BAND REMOVED. EXIT CARE INSTRUCTIONS AND PRESCRIPTIONS PROVIDED. PT'S SIGNED PT REFUSED TO SIGN AND REFUSED PICTURES TAKEN PT I S AMBULATORY , VSS.
--- NOTE | 2021-12-22 11:30 | NUR ---
GPS/RN PT'S HEARING AID WAS FOUND UNDER THE MATTRESS WHEN LINEN WAS REMOVED. PT WAS NOTIFIED AND HEARING AID WILL BE MAILED REQUESTED BY PT'S .
== END 2021-12-22 11:00 | disposition home or self-care (01) | DRG 885 ==
LOC: ER 10:12 → GPS 17:25
PROVIDERS: ADMIT Psychiatry & Neurology Psychiatry; ATTEND Internal Medicine
DX: F29 Unspecified psychosis not due to a substance or known physiological condition (principal); N39.0 Urinary tract infection, site not specified; E44.0 Moderate protein-calorie malnutrition; Z68.1 Body mass index [BMI] 19.9 or less, adult; F32.A Depression, unspecified; E78.5 Hyperlipidemia, unspecified; F03.90 Unspecified dementia, unspecified severity, without behavioral disturbance, psychotic disturbance, mood disturbance, and anxiety; F42.9 Obsessive-compulsive disorder, unspecified; E87.6 Hypokalemia; I10 Essential (primary) hypertension; K21.9 Gastro-esophageal reflux disease without esophagitis; L85.3 Xerosis cutis; M20.42 Other hammer toe(s) (acquired), left foot; M20.41 Other hammer toe(s) (acquired), right foot; S81.811A Laceration without foreign body, right lower leg, initial encounter; X58.XXXA Exposure to other specified factors, initial encounter; Y93.9 Activity, unspecified; Y92.9 Unspecified place or not applicable; Z87.891 Personal history of nicotine dependence; Z20.822 Contact with and (suspected) exposure to COVID-19; Z88.2 Allergy status to sulfonamides
CPT/HCPCS: 36415; 80048-TC; 80053-TC; 80061-TC; 80076-TC; 81001; 84484-TC; 85025-TC; 87081-TC; 87086-TC; C9803; G0480

== ENCOUNTER 2022-02-09 10:17 | Inpatient (IN) | payer MEDICARE, BC ==
[~2022-02-09] VITALS: Ht 162.6 cm; Wt 56.7 kg
[~2022-02-09 10:17] MED LIST changes: -MELA5TAB PO; +OMEP20CA15 PO; +VENL225T PO; +VITAMIN B12 PO; -VORT20TA PO
[2022-02-09] MEDS ORDERED: MEMA21CA2 PO (10:48)
[2022-02-09 10:53] VITALS: BP 114/65
[2022-02-09] MEDS ORDERED: MIRT-90 PO (10:56)
[2022-02-09] MEDS ORDERED: LORA-258 PO (10:56)
[2022-02-09] MEDS ORDERED: MAG HYDROX/AL HYDROX/SIMETH 30 ML UDC PO PRN (11:30)
[2022-02-09] MEDS ORDERED: MAGNESIUM HYDROXIDE 30 ML UDC PO PRN (11:30)
[2022-02-09] MEDS ORDERED: BLOOD SUGAR DIAGNOSTIC 1 EACH STRIP IN ONE (11:30)
[2022-02-09] MEDS ORDERED: ACETAMINOPHEN 325 MG TABLET PO PRN (11:30)
[2022-02-09] MEDS ORDERED: LORAZEPAM 0.5 MG TABLET PO PRN (12:00)
[2022-02-09 16:00] VITALS: BP 117/81
[2022-02-09 19:58] VITALS: BP 124/71
[2022-02-09 20:00] VITALS: BP 129/71
[2022-02-09 20:36] VITALS: BP 124/71
[2022-02-09] MEDS: DONEPEZIL 5 MG TABLET PO SCH (22:03)
[2022-02-09] MEDS: risperiDONE 1 MG TABLET PO SCH (22:03)
[2022-02-09] MEDS: MIRTAZAPINE 15 MG TABLET PO SCH (22:34)
[2022-02-10 07:26] LABS: ALBUMIN 2.7 g/dL (3.4-5.0); BILIRUBIN,TOTAL 0.4 mg/dL (0.2-1.0); CALCIUM, SERUM 8.3 mg/dL (8.5-10.1); CREATININE 0.6 mg/dL (0.6-1.3); POTASSIUM 3.6 mmol/L (3.5-5.1); TOTAL PROTEIN, SERUM 5.7 g/dL (6.4-8.2)
[2022-02-10 07:27] LABS: CHOLESTEROL 130 mg/dL (<200); HDL CHOLESTEROL 66 mg/dL (40-60); LDL 52 mg/dL (0-99); TRIGLYCERIDES 66 mg/dL (30-150)
[2022-02-10 08:00] VITALS: BP 136/72
[2022-02-10] MEDS: ATORVASTATIN 10 MG TABLET PO SCH (08:16)
[2022-02-10] MEDS: MEMANTINE HCL 5 MG TABLET PO SCH ×2 (08:16→16:38)
[2022-02-10] MEDS: PANTOPRAZOLE 40 MG TABLET.DR PO SCH (08:16)
[2022-02-10] MEDS: risperiDONE 1 MG TABLET PO SCH ×2 (08:16→21:25)
[2022-02-10 16:00] VITALS: BP 128/74
[2022-02-10 19:50] VITALS: BP 122/70
[2022-02-10 20:29] VITALS: BP 122/70
[2022-02-10] MEDS: DONEPEZIL 5 MG TABLET PO SCH (21:25)
[2022-02-10] MEDS: MIRTAZAPINE 15 MG TABLET PO SCH (21:29)
[2022-02-11 08:00] VITALS: BP 114/67
[2022-02-11] MEDS: MEMANTINE HCL 5 MG TABLET PO SCH ×2 (09:18→16:36)
[2022-02-11] MEDS: risperiDONE 1 MG TABLET PO SCH ×2 (09:18→21:13)
[2022-02-11] MEDS: PANTOPRAZOLE 40 MG TABLET.DR PO SCH (09:18)
[2022-02-11] MEDS: ATORVASTATIN 10 MG TABLET PO SCH (09:18)
[2022-02-11 16:00] VITALS: BP 120/72
[2022-02-11 20:25] VITALS: BP 128/78
[2022-02-11] MEDS: MIRTAZAPINE 15 MG TABLET PO SCH (21:12)
[2022-02-11] MEDS: DONEPEZIL 5 MG TABLET PO SCH (21:12)
[2022-02-12] MEDS: TEMAZEPAM 7.5 MG CAPSULE PO PRN (01:33)
[2022-02-12 08:00] VITALS: BP 121/75
[2022-02-12] MEDS: PANTOPRAZOLE 40 MG TABLET.DR PO SCH (08:25)
[2022-02-12] MEDS: MEMANTINE HCL 5 MG TABLET PO SCH ×2 (08:25→16:15)
[2022-02-12] MEDS: risperiDONE 1 MG TABLET PO SCH ×2 (08:25→21:00)
[2022-02-12] MEDS: ATORVASTATIN 10 MG TABLET PO SCH (08:25)
[2022-02-12 16:00] VITALS: BP 120/64
[2022-02-12 20:32] VITALS: BP 111/76
[2022-02-12] MEDS: DONEPEZIL 5 MG TABLET PO SCH (21:00)
[2022-02-12] MEDS: MIRTAZAPINE 15 MG TABLET PO SCH (21:00)
[2022-02-13] MEDS: TEMAZEPAM 7.5 MG CAPSULE PO PRN ×2 (00:59→22:47)
[2022-02-13 08:00] VITALS: BP 116/78
[2022-02-13] MEDS: MEMANTINE HCL 5 MG TABLET PO SCH ×2 (10:53→18:41)
[2022-02-13] MEDS: ATORVASTATIN 10 MG TABLET PO SCH (10:53)
[2022-02-13] MEDS: risperiDONE 1 MG TABLET PO SCH ×2 (10:55→22:09)
[2022-02-13] MEDS: PANTOPRAZOLE 40 MG TABLET.DR PO SCH (10:55)
[2022-02-13] MEDS: RIVASTIGMINE TARTRATE 1.5 MG CAPSULE PO SCH (14:36)
[2022-02-13 16:00] VITALS: BP 103/61
[2022-02-13 20:00] VITALS: BP 107/68
[2022-02-13] MEDS: MIRTAZAPINE 15 MG TABLET PO SCH (22:09)
[2022-02-13] MEDS: DONEPEZIL 5 MG TABLET PO SCH (22:10)
[2022-02-14] MEDS: RIVASTIGMINE TARTRATE 1.5 MG CAPSULE PO SCH ×3 (02:30→15:26)
[2022-02-14 08:00] VITALS: BP 102/57
[2022-02-14] MEDS: ATORVASTATIN 10 MG TABLET PO SCH ×2 (09:00→10:28)
[2022-02-14] MEDS: risperiDONE 1 MG TABLET PO SCH ×3 (09:00→22:48)
[2022-02-14] MEDS: PANTOPRAZOLE 40 MG TABLET.DR PO SCH ×2 (09:00→10:28)
[2022-02-14] MEDS: MEMANTINE HCL 5 MG TABLET PO SCH ×3 (09:00→16:16)
[2022-02-14 16:00] VITALS: BP_SYST 112; BP_SYST 117; BP_DIAS 67; BP_DIAS 75
[2022-02-14 20:00] VITALS: BP 104/67
[2022-02-14] MEDS: DONEPEZIL 5 MG TABLET PO SCH (22:47)
[2022-02-14] MEDS: MIRTAZAPINE 15 MG TABLET PO SCH (22:48)
[2022-02-15] MEDS: RIVASTIGMINE TARTRATE 1.5 MG CAPSULE PO SCH ×2 (02:30→15:00)
[2022-02-15 08:00] VITALS: BP 95/60
[2022-02-15] MEDS: ATORVASTATIN 10 MG TABLET PO SCH (10:19)
[2022-02-15] MEDS: PANTOPRAZOLE 40 MG TABLET.DR PO SCH (10:19)
[2022-02-15] MEDS: MEMANTINE HCL 5 MG TABLET PO SCH ×2 (10:19→16:47)
[2022-02-15] MEDS: risperiDONE 1 MG TABLET PO SCH (10:19)
[2022-02-15 16:00] VITALS: BP 105/60
[2022-02-15] MEDS: risperiDONE 0.25 MG TABLET PO SCH (19:55)
[2022-02-15] MEDS: TEMAZEPAM 7.5 MG CAPSULE PO PRN (21:21)
[2022-02-15] MEDS: DONEPEZIL 5 MG TABLET PO SCH (21:21)
[2022-02-15] MEDS: MIRTAZAPINE 15 MG TABLET PO SCH (21:24)
[2022-02-16] MEDS: RIVASTIGMINE TARTRATE 1.5 MG CAPSULE PO SCH ×2 (02:30→14:48)
[2022-02-16] MEDS: risperiDONE 0.25 MG TABLET PO SCH ×2 (06:36→20:11)
[2022-02-16 08:00] VITALS: BP 108/55
[2022-02-16] MEDS: ATORVASTATIN 10 MG TABLET PO SCH (10:09)
[2022-02-16] MEDS: MEMANTINE HCL 5 MG TABLET PO SCH ×2 (10:09→16:33)
[2022-02-16] MEDS: PANTOPRAZOLE 40 MG TABLET.DR PO SCH (10:09)
[2022-02-16 16:00] VITALS: BP 92/62
[2022-02-16 20:00] VITALS: BP 107/55
[2022-02-16] MEDS: DONEPEZIL 5 MG TABLET PO SCH (21:55)
[2022-02-16] MEDS: MIRTAZAPINE 15 MG TABLET PO SCH (21:55)
[2022-02-17] MEDS: RIVASTIGMINE TARTRATE 1.5 MG CAPSULE PO SCH ×2 (02:30→15:41)
[2022-02-17] MEDS: risperiDONE 0.25 MG TABLET PO SCH ×2 (07:54→18:04)
[2022-02-17 08:00] VITALS: BP 115/63
[2022-02-17] MEDS: ATORVASTATIN 10 MG TABLET PO SCH (09:07)
[2022-02-17] MEDS: MEMANTINE HCL 5 MG TABLET PO SCH ×2 (09:07→16:29)
[2022-02-17] MEDS: PANTOPRAZOLE 40 MG TABLET.DR PO SCH (09:07)
[2022-02-17 16:00] VITALS: BP 104/65
[2022-02-17 20:24] VITALS: BP 108/58
[2022-02-17] MEDS: DONEPEZIL 5 MG TABLET PO SCH (21:37)
[2022-02-17] MEDS: MIRTAZAPINE 15 MG TABLET PO SCH (21:37)
[2022-02-18] MEDS: RIVASTIGMINE TARTRATE 1.5 MG CAPSULE PO SCH ×2 (01:48→14:27)
[2022-02-18] MEDS: risperiDONE 0.25 MG TABLET PO SCH ×2 (06:40→18:04)
[2022-02-18 08:00] VITALS: BP 111/62
[2022-02-18] MEDS: ATORVASTATIN 10 MG TABLET PO SCH (08:21)
[2022-02-18] MEDS: PANTOPRAZOLE 40 MG TABLET.DR PO SCH (08:21)
[2022-02-18] MEDS: MEMANTINE HCL 5 MG TABLET PO SCH ×2 (08:21→17:13)
[2022-02-18 16:00] VITALS: BP 100/62
[2022-02-18 19:51] VITALS: BP 102/55
[2022-02-18 19:52] VITALS: BP 102/55
[2022-02-18] MEDS: DONEPEZIL 5 MG TABLET PO SCH (22:02)
[2022-02-18] MEDS: MIRTAZAPINE 15 MG TABLET PO SCH (22:02)
[2022-02-19] MEDS: RIVASTIGMINE TARTRATE 1.5 MG CAPSULE PO SCH ×2 (02:05→15:17)
[2022-02-19] MEDS: risperiDONE 0.25 MG TABLET PO SCH ×2 (06:11→18:16)
[2022-02-19 08:00] VITALS: BP 101/60
[2022-02-19] MEDS: PANTOPRAZOLE 40 MG TABLET.DR PO SCH (08:39)
[2022-02-19] MEDS: ATORVASTATIN 10 MG TABLET PO SCH (08:39)
[2022-02-19] MEDS: MEMANTINE HCL 5 MG TABLET PO SCH ×2 (08:39→17:41)
[2022-02-19 16:00] VITALS: BP 102/68
[2022-02-19 19:57] VITALS: BP 112/72
[2022-02-19] MEDS: DONEPEZIL 5 MG TABLET PO SCH (21:19)
[2022-02-19] MEDS: MIRTAZAPINE 15 MG TABLET PO SCH (21:19)
[2022-02-20] MEDS: TEMAZEPAM 7.5 MG CAPSULE PO PRN (00:24)
[2022-02-20] MEDS: RIVASTIGMINE TARTRATE 1.5 MG CAPSULE PO SCH ×2 (01:39→15:13)
[2022-02-20] MEDS: risperiDONE 0.25 MG TABLET PO SCH ×2 (06:41→20:13)
[2022-02-20 08:00] VITALS: BP 121/70
[2022-02-20] MEDS: MEMANTINE HCL 5 MG TABLET PO SCH ×2 (09:15→17:34)
[2022-02-20] MEDS: PANTOPRAZOLE 40 MG TABLET.DR PO SCH (09:15)
[2022-02-20] MEDS: ATORVASTATIN 10 MG TABLET PO SCH (09:15)
[2022-02-20 16:00] VITALS: BP 108/58
[2022-02-20 20:05] VITALS: BP 101/62
[2022-02-20] MEDS: MIRTAZAPINE 15 MG TABLET PO SCH (21:48)
[2022-02-20] MEDS: DONEPEZIL 5 MG TABLET PO SCH (21:48)
[2022-02-21] MEDS: RIVASTIGMINE TARTRATE 1.5 MG CAPSULE PO SCH ×2 (02:30→14:30)
[2022-02-21] MEDS: risperiDONE 0.25 MG TABLET PO SCH (07:08)
[2022-02-21 08:00] VITALS: BP 106/67
[2022-02-21] MEDS: PANTOPRAZOLE 40 MG TABLET.DR PO SCH (08:28)
[2022-02-21] MEDS: MEMANTINE HCL 5 MG TABLET PO SCH (08:28)
[2022-02-21] MEDS: ATORVASTATIN 10 MG TABLET PO SCH (08:28)
== END 2022-02-21 15:00 | DRG 881 ==
LOC: GPS 10:17
PROVIDERS: ADMIT Psychiatry & Neurology Psychiatry; ATTEND Nurse Practitioner Family
DX: F32.A Depression, unspecified (principal); E44.0 Moderate protein-calorie malnutrition; F29 Unspecified psychosis not due to a substance or known physiological condition; E88.09 Other disorders of plasma-protein metabolism, not elsewhere classified; E78.5 Hyperlipidemia, unspecified; G30.9 Alzheimer's disease, unspecified; K21.9 Gastro-esophageal reflux disease without esophagitis; Z85.41 Personal history of malignant neoplasm of cervix uteri; F02.80 Dementia in other diseases classified elsewhere, unspecified severity, without behavioral disturbance, psychotic disturbance, mood disturbance, and anxiety; E78.00 Pure hypercholesterolemia, unspecified; I10 Essential (primary) hypertension; F10.10 Alcohol abuse, uncomplicated; L90.0 Lichen sclerosus et atrophicus; Z87.891 Personal history of nicotine dependence; Z79.899 Other long term (current) drug therapy
CPT/HCPCS: 36415; 80053-TC; 80061-TC; 87081-TC; 97116-TC; 97530-TC

== ENCOUNTER 2022-08-04 20:18 | Inpatient (IN) | payer MEDICARE, BC ==
[~2022-08-04] VITALS: Ht 162.6 cm; Wt 59.0 kg
[~2022-08-04 20:18] MED LIST changes: -BIOT800T PO; -LACT1CAP71 PO; -LOSA25TA27 PO; -MEMA14CA PO; +MEMA21CA2 PO; -RISP0.2515 PO; -VENL225T PO
--- NOTE | 2022-08-04 20:42 | NUR ---
PATIENT BIBPA FROM SNF C/O MEDICAL CLEARANCE. PATIENT IS A/O X3, RR EVEN AND UNLABORED NO SOB NOTED, PATIENT IS AFEBRILE, VSS. PATIENT TAKEN TO ER BED 15. PATIENT CONNECTED TO SENIOR AUDIT MANAGER AND POX. SITTER AT BEDSIDE
--- NOTE | 2022-08-04 21:57 | NUR ---
MRSA SWAB COLLECTED AND SENT TO LAB. PATIENT'S BELONGINGS LIST DONE.
--- NOTE | 2022-08-04 21:58 | NUR ---
BED 281-1 Addendum: 08/04/22 at 2158 by CBATACLAN BED 218-1
--- NOTE | 2022-08-04 22:00 | NUR ---
MOVESHEET SUBMITTED TO ADMITTING
--- NOTE | 2022-08-04 22:47 | NUR ---
REPORT GIVEN TO BENIGNO TYLER FOR RONI
[2022-08-04 23:40] VITALS: BP 130/75
--- NOTE | 2022-08-04 23:40 | NUR ---
GPS ADMISSION NOTE, RECEIVED PATIENT FROM [facility] [place]. PATIENT ARRIVED ON THIS UNIT AT 2340 VIA STRETCHER WITH 2 RN ORTHOPAEDIC ESCORTS. PATIENT ADMITTED ON A 5150 HOLD FOR GD. PER HOLD PATIENT IS ALERT AND ORIENTED X 4 WITH A LABILE MOOD, GUARDED, WHILE DENYING SI. PER ROOMMATE PATIENT HAS BEEN CALLING PEOPLE ALL WEEK STATING SHE IS GOING TO TAKE HER LIFE. PATIENT HAS ALSO BEEN GIVING AWAY HER BELONGINGS. PATIENT WAS UNABLE TO CONTRACT FOR SAFETY AT THAT TIME. FOUND AND CONFISCATED A FIREARM IN HER CAR. THE 5150 WAS REVIEWED AND THE DOCUMENTATION IN THE 5150 HOLD APPEARS TO REFLECT THE PRESENTATION OF THE PATIENT. UPON FACE TO FACE ASSESSMENT PATIENT IS NOTED TO BEING HYPERVERBAL, DISHEVELED, DISORGANIZED, DEMANDING, UNCOOPERATIVE, AND NEEDS REDIRECTION. PATIENT IS CURRENTLY LYING IN BED AWAKE, HAS NO S/S OR COMPLAINTS OF PAIN. PATIENT IS DISPLAYING NO S/S OF APPARENT DISTRESS. PATIENT BREATHING IS UNLABORED WITH EQUAL RISE AND FALL OF THE CHEST. PATIENT IS ALERT AND ORIENTATED X 4 ON ROOM AIR. PATIENT ASSISTED WITH TURING AND REPOSITIONING Q2HR AND PRN FOR COMFORT AND CIRCULATION. PATIENT HAS NO NEEDS AT THIS TIME. PATIENT DENIES SUICIDE IDEATIONS AND HOMICIDAL IDEATIONS AT THIS TIME. PATIENT REFUSED TO SIGNS ANY PAPER WORK AND THINKS THIS IS ALL A MISTAKE. PATIENT ADVISED OF HER HOLD AND PATIENT RIGHTS BOOKLET GIVEN. PATIENT IS UNDER THE PSYCHIATRIC CARE OF DR. INMAN AND THE MEDICAL CARE OF DR PATEL. PATIENT BELONGINGS WERE INVENTORIED AND CHECKED FOR CONTRABAND. ALL CONTRABAND REMOVED AND STORED IN PATIENT HALLWAY LOCKER. PATIENT ADVANCED DIRECTIVES PREFERENCE, IMMUNIZATIONS QUESTIONER, NECESSARY PAPERWORK COMPLETED. PATIENT REFUSED SKIN ASSESSMENT. PATIENT ORIENTATED TO ROOM, FLOOR, AND STAFF WITH ALL QUESTIONS ANSWERED. PATIENT EDUCATED ON THE USE OF THE CALL RICCI. PATIENT BED SIDE RAILS ARE UP X 2 FOR SAFETY. PATIENT BED IS LOCKED, LOW AND I WILL CONTINUE TO MONITOR THIS PATIENT Q 15 MIN WITH THE HELP OF STAFF TO MAINTAIN SAFETY. Addendum: 08/05/22 at 0041 by BENIGNO ANDREA RN DISREGARD NOTE.
--- NOTE | 2022-08-04 23:41 | NUR ---
GPS ADMISSION NOTE, RECEIVED PATIENT FROM [facility] / [facility]. PATIENT ARRIVED ON THIS UNIT AT 2340 VIA STRETCHER WITH 2 PHOTOGRAPHIC PRESS SCREWMAKER ESCORTS. PATIENT ADMITTED ON A 5150 HOLD FOR GD. PER HOLD PATIENT IS GRAVELY DISABLED EVIDENCED BY THIS PATIENT UNABLE TO ARTICULATE A FEASIBLE PLAN TO PROVIDE BASIC NECESSITIES FOR SELF. PATIENT HAS BEEN EXPERIENCING HALLUCINATIONS AND REFUSING TO EAT. PATIENT PRESENTS A/O X 1-2, CONFUSED, AND UNABLE TO SELF-CARE EVEN WITH ASSISTANCE. THE 5150 WAS REVIEWED AND THE DOCUMENTATION IN THE 5150 HOLD APPEARS TO REFLECT THE PRESENTATION OF THE PATIENT. UPON FACE TO FACE ASSESSMENT PATIENT IS NOTED TO BEING CONFUSED, DISHEVELED, DISORGANIZED, GUARDED, COOPERATIVE, AND NEEDS REDIRECTION. PATIENT IS CURRENTLY LYING IN BED AWAKE, HAS NO S/S OR COMPLAINTS OF PAIN. PATIENT IS DISPLAYING NO S/S OF APPARENT DISTRESS. PATIENT BREATHING IS UNLABORED WITH EQUAL RISE AND FALL OF THE CHEST. PATIENT IS ALERT AND ORIENTATED X 1-2 ON ROOM AIR. PATIENT ASSISTED WITH TURING AND REPOSITIONING Q2HR AND PRN FOR COMFORT AND CIRCULATION. PATIENT HAS NO NEEDS AT THIS TIME. PATIENT DENIES SUICIDE IDEATIONS AND HOMICIDAL IDEATIONS AT THIS TIME. PATIENT IS CONFUSED AND REFUSED TO SIGN ANY PAPER WORK. PATIENT ADVISED OF HER HOLD AND PATIENT RIGHTS BOOKLET GIVEN. PATIENT IS UNDER THE PSYCHIATRIC CARE OF DR. CAMPOS AND THE MEDICAL CARE OF ANA AZAR NP. PATIENT BELONGINGS WERE INVENTORIED AND CHECKED FOR CONTRABAND. ALL CONTRABAND REMOVED AND STORED IN PATIENT HALLWAY LOCKER. PATIENT ADVANCED DIRECTIVES PREFERENCE, IMMUNIZATIONS QUESTIONER, NECESSARY PAPERWORK COMPLETED. PATIENT SKIN ASSESSMENT COMPLETED. PATIENT ORIENTATED TO ROOM, FLOOR, AND STAFF WITH ALL QUESTIONS ANSWERED. PATIENT EDUCATED ON THE USE OF THE CALL LIGHT. PATIENT BED SIDE RAILS ARE UP X 2 FOR SAFETY. PATIENT BED IS LOCKED, LOW AND I WILL CONTINUE TO MONITOR THIS PATIENT Q 15 MIN WITH THE HELP OF STAFF TO MAINTAIN SAFETY.
--- NOTE | 2022-08-04 23:54 | NUR ---
PT TRANSFERRED, VSS, NO ACUTE DISTRESS NOTED.
[2022-08-05] MEDS ORDERED: MAG HYDROX/AL HYDROX/SIMETH 30 ML UDC PO PRN (00:30)
[2022-08-05] MEDS ORDERED: clonazePAM 0.5 MG TABLET PO PRN (00:30)
[2022-08-05] MEDS ORDERED: MAGNESIUM HYDROXIDE 30 ML UDC PO PRN (00:30)
[2022-08-05] MEDS ORDERED: ACETAMINOPHEN 325 MG TABLET PO PRN (00:30)
[2022-08-05] MEDS ORDERED: CLOB15CR5 TP (00:59)
[2022-08-05] MEDS ORDERED: BLOOD SUGAR DIAGNOSTIC 1 EACH STRIP IN ONE (01:00)
[2022-08-05] MEDS ORDERED: MULT-754 PO (01:02)
[2022-08-05] MEDS ORDERED: HALO1TAB5 PO (01:04)
[2022-08-05] MEDS ORDERED: APIX2.5T PO (01:05)
[2022-08-05] MEDS ORDERED: MIRT-90 PO (01:06)
[2022-08-05] MEDS ORDERED: VENL225T PO (01:07)
[2022-08-05] MEDS ORDERED: RISP2TAB85 PO (01:08)
[2022-08-05] MEDS ORDERED: DONE10TA44 PO (01:10)
[2022-08-05] MEDS ORDERED: LOSA25TA27 PO (01:11)
[2022-08-05 07:41] LABS: BASOPHILS % (AUTO) 0.7 % (0.0-2.0); EOSINOPHILS % (AUTO) 2.4 % (0.0-6.0); HEMATOCRIT 34 % (33-45); HEMOGLOBIN 11.4 g/dL (11.5-14.8); LYMPHOCYTES # (AUTO) 0.8 K/uL (0.8-4.8); LYMPHOCYTES % (AUTO) 17.6 % (20.0-44.0); MEAN CORPUSCULAR HGB CONC 34 g/dl (31.0-36.0); MEAN CORPUSCULAR VOLUME 95 fL (82-100); MONOCYTES # (AUTO) 0.5 K/uL (0.1-1.30); NEUTROPHILS # (AUTO) 3.3 K/uL (1.8-8.9); NEUTROPHILS % (AUTO) 69.3 % (43.0-81.0); PLATELET COUNT (AUTO) 175 K/uL (150-450); RED BLOOD CELL COUNT(AUTO) 3.58 MIL/uL (4.0-5.2); WHITE BLOOD COUNT (AUTO) 4.8 K/uL (4.3-11.0)
[2022-08-05 08:00] VITALS: BP 114/62
[2022-08-05] MEDS: ENSURE ENLIVE CHOC 237 ML CAN PO SCH ×2 (08:27→17:14)
[2022-08-05] MEDS: PANTOPRAZOLE 40 MG TABLET.DR PO SCH (08:27)
[2022-08-05] MEDS ORDERED: MEMA5TAB PO (08:35)
[2022-08-05] MEDS ORDERED: CYAN-6 IM (08:35)
[2022-08-05] MEDS: MULTIVITAMINS,THERAGRAN 1 UDTAB TABLET PO SCH (08:35)
[2022-08-05] MEDS: DONEPEZIL 5 MG TABLET PO SCH (08:35)
[2022-08-05] MEDS: APIXABAN 2.5 MG TABLET PO SCH ×2 (08:36→17:13)
[2022-08-05] MEDS: LOSARTAN POTASSIUM 25 MG TABLET PO SCH (08:39)
[2022-08-05] MEDS ORDERED: MEMANTINE HCL 5 MG TABLET PO SCH (09:00)
[2022-08-05] MEDS ORDERED: LamoTRIgine 100 MG TABLET PO SCH ×2 (09:00)
[2022-08-05 09:07] LABS: CALCIUM, SERUM 8.4 mg/dL (8.5-10.1); CREATININE 0.7 mg/dL (0.6-1.3); POTASSIUM 3.6 mmol/L (3.5-5.1)
[2022-08-05] MEDS: CLOBETASOL 0.05% OINT 30 GM TUBE TP SCH ×2 (09:12→17:40)
[2022-08-05] MEDS: OLANZAPINE 5 MG TABLET PO SCH ×2 (10:12→17:13)
[2022-08-05 16:00] VITALS: BP 99/59
[2022-08-05] MEDS: MEMANTINE HCL 5 MG TABLET PO SCH (17:13)
[2022-08-05 21:07] VITALS: BP 124/70
[2022-08-05] MEDS: ATORVASTATIN 10 MG TABLET PO SCH (21:13)
[2022-08-05] MEDS: MIRTAZAPINE 15 MG TABLET PO SCH (21:13)
[2022-08-06] MEDS: PANTOPRAZOLE 40 MG TABLET.DR PO SCH (07:27)
[2022-08-06 08:00] VITALS: BP 109/78
[2022-08-06] MEDS: CLOBETASOL 0.05% OINT 30 GM TUBE TP SCH ×2 (08:27→16:33)
[2022-08-06] MEDS: DONEPEZIL 5 MG TABLET PO SCH (08:28)
[2022-08-06] MEDS: MEMANTINE HCL 5 MG TABLET PO SCH ×2 (08:28→16:31)
[2022-08-06] MEDS: APIXABAN 2.5 MG TABLET PO SCH ×2 (08:29→16:30)
[2022-08-06] MEDS: MULTIVITAMINS,THERAGRAN 1 UDTAB TABLET PO SCH (08:29)
[2022-08-06] MEDS: OLANZAPINE 5 MG TABLET PO SCH ×2 (08:29→16:31)
[2022-08-06] MEDS: LOSARTAN POTASSIUM 25 MG TABLET PO SCH (08:29)
--- NOTE | 2022-08-06 09:02 | NUR ---
BARBARA Clinical Note: Pt placed on a 5150 hold for GD. Pt was not eating at home and has been disorganized. Patient currently resides at home located at [address] [place] [address]; ([phone]). Patient lives with her Edison ([phone]). Pt would want to return back home with . SW will be in contact with pt's Edison.
--- NOTE | 2022-08-06 09:02 | NUR ---
BARBARA Initial Discharge Note: Patient currently resides at home located at [address] [place] [address]; ([phone]). Patient lives with her Edison ([phone]). Pt would want to return back home with . SW will be in contact with pt's Edison. BARBARA will work with the pt, family, and MD to help coordinate appropriate discharge.
--- NOTE | 2022-08-06 09:03 | NUR ---
Treatment Plan: Pt refused to sign treatment plan. Pt was very confused and disorganized.
--- NOTE | 2022-08-06 11:20 | NUR ---
BARBARA Family Contact: BARBARA contacted pt's Edison ([phone]) who is the DPOA. SW placed in pt's chart. BARBARA discussed treatment/discharge plan and he stated he would want pt back upon discharge. He has been taking care of pt at home.
[2022-08-06] MEDS: ENSURE ENLIVE CHOC 237 ML CAN PO SCH ×2 (11:55→16:03)
--- NOTE | 2022-08-06 13:18 | NUR ---
RN-CO: PATIENT IS CONFUSED, SHE IS IN THE DING ROOM AT THIS TIME WATCHING TV. SHE NEEDS ASSISTANCE WITH ADL AND REORIENTATION TO SURROUNDINGS AND TIME.
[2022-08-06 16:00] VITALS: BP 126/72
--- NOTE | 2022-08-06 17:43 | NUR ---
RN-CO: FOLLOWED UP VENOUS DOPPLER TO RADIOLOGY. SPOKE WITH CANELO THEY WILL DO IT TOMM MORNING.
--- NOTE | 2022-08-06 18:51 | NUR ---
RN-CO: request wound care consult for left lateral wound.
[2022-08-06 19:59] VITALS: BP 122/61
[2022-08-06] MEDS: MIRTAZAPINE 15 MG TABLET PO SCH (21:08)
[2022-08-06] MEDS: ATORVASTATIN 10 MG TABLET PO SCH (21:08)
--- NOTE | 2022-08-07 07:30 | NUR ---
RN OPENING NOTE PATIENT IS IN BED ASLEEP BUT EASILY AROUSABLE. ALERT, ORIENTED X 1. ON ROOM AIR, BREATHING UNLABORED AND NOT IN ANY FORM OF DISTRESS. DENIES SUICIDAL IDEATION. ALL HOSPITAL SAFETY PRECAUTIONS IN PLACE. WILL CONTINUE TO MONITOR THROUGHOUT SHIFT.
[2022-08-07 08:00] VITALS: BP 138/65
[2022-08-07] MEDS: ENSURE ENLIVE CHOC 237 ML CAN PO SCH ×3 (08:16→16:45)
[2022-08-07] MEDS: PANTOPRAZOLE 40 MG TABLET.DR PO SCH (08:16)
--- NOTE | 2022-08-07 08:18 | NUR ---
WOUND CARE CONSULT: PT PRESENTS WITH SACRAL SCARRING, LEFT ARM SKIN TEAR AND LEFT LATERAL FOOT RAISED CALLUS/LESION WITH REDNESS TO HEELS, ALL PRESENT ON ADMISSION. RECOMMENDATIONS MADE FOR SKIN PROTECTION AND WOUND CARE. DISCUSSED WITH NURSING STAFF. DR TORRES CALLED FOR DPM CONSULT. MD IN AGREEMENT WITH PLAN OF CARE.
[2022-08-07] MEDS: DONEPEZIL 5 MG TABLET PO SCH (09:36)
[2022-08-07] MEDS: MEMANTINE HCL 5 MG TABLET PO SCH ×2 (09:36→16:45)
[2022-08-07] MEDS: MULTIVITAMINS,THERAGRAN 1 UDTAB TABLET PO SCH (09:36)
[2022-08-07] MEDS: APIXABAN 2.5 MG TABLET PO SCH ×2 (09:38→16:47)
[2022-08-07] MEDS: CLOBETASOL 0.05% OINT 30 GM TUBE TP SCH ×2 (09:39→16:46)
[2022-08-07] MEDS: LOSARTAN POTASSIUM 25 MG TABLET PO SCH (09:39)
[2022-08-07] MEDS: OLANZAPINE 5 MG TABLET PO SCH ×2 (09:41→16:45)
[2022-08-07 16:00] VITALS: BP 142/87
[2022-08-07 21:05] VITALS: BP 102/65
[2022-08-07] MEDS: ATORVASTATIN 10 MG TABLET PO SCH (21:40)
[2022-08-07] MEDS: MIRTAZAPINE 15 MG TABLET PO SCH (21:40)
[2022-08-07] MEDS: TEMAZEPAM 7.5 MG CAPSULE PO PRN (21:40)
--- NOTE | 2022-08-07 21:40 | NUR ---
GPS RN NOTE PT UANBLE TO SLEEP, RESTORIL 7.5 MG PO GIVEN. FOR SLEEP, CONTINUE TO MONITOR HER.
--- NOTE | 2022-08-07 22:40 | NUR ---
GPS RN NOTE PT FALL BACK TO SLEEP, NO DISTRESS OR DISCOMFORT NOTED.
[2022-08-08 08:00] VITALS: BP_SYST 118; BP_SYST 119; BP_DIAS 56; BP_DIAS 85
[2022-08-08] MEDS: ENSURE ENLIVE CHOC 237 ML CAN PO SCH ×3 (08:06→16:20)
[2022-08-08] MEDS: PANTOPRAZOLE 40 MG TABLET.DR PO SCH (08:06)
[2022-08-08] MEDS: LOSARTAN POTASSIUM 25 MG TABLET PO SCH (09:07)
[2022-08-08] MEDS: OLANZAPINE 5 MG TABLET PO SCH ×2 (09:07→16:19)
[2022-08-08] MEDS: CLOBETASOL 0.05% OINT 30 GM TUBE TP SCH ×2 (09:07→16:20)
[2022-08-08] MEDS: MULTIVITAMINS,THERAGRAN 1 UDTAB TABLET PO SCH (09:08)
[2022-08-08] MEDS: DONEPEZIL 5 MG TABLET PO SCH (09:08)
[2022-08-08] MEDS: MEMANTINE HCL 5 MG TABLET PO SCH ×2 (09:08→16:20)
[2022-08-08] MEDS: APIXABAN 2.5 MG TABLET PO SCH ×2 (09:08→16:19)
[2022-08-08 19:59] VITALS: BP 94/60
[2022-08-08 21:30] VITALS: BP 127/80
[2022-08-08] MEDS: MIRTAZAPINE 15 MG TABLET PO SCH (21:40)
[2022-08-08] MEDS: ATORVASTATIN 10 MG TABLET PO SCH (21:40)
[2022-08-08] MEDS: TEMAZEPAM 7.5 MG CAPSULE PO PRN (23:40)
[2022-08-09] MEDS: PANTOPRAZOLE 40 MG TABLET.DR PO SCH (07:45)
[2022-08-09 08:00] VITALS: BP 90/57
[2022-08-09] MEDS: MULTIVITAMINS,THERAGRAN 1 UDTAB TABLET PO SCH (08:24)
[2022-08-09] MEDS: ENSURE ENLIVE CHOC 237 ML CAN PO SCH ×3 (08:24→17:31)
[2022-08-09] MEDS: DONEPEZIL 5 MG TABLET PO SCH (08:24)
[2022-08-09] MEDS: MEMANTINE HCL 5 MG TABLET PO SCH ×2 (08:24→16:41)
[2022-08-09] MEDS: APIXABAN 2.5 MG TABLET PO SCH ×2 (08:26→16:41)
[2022-08-09] MEDS: OLANZAPINE 5 MG TABLET PO SCH ×2 (08:28→16:41)
[2022-08-09] MEDS: LOSARTAN POTASSIUM 25 MG TABLET PO SCH (08:28)
[2022-08-09] MEDS: CLOBETASOL 0.05% OINT 30 GM TUBE TP SCH ×2 (10:21→16:42)
[2022-08-09 16:00] VITALS: BP 109/71
[2022-08-09 20:00] VITALS: BP 120/58
--- NOTE | 2022-08-09 20:56 | NUR ---
PT AWAKE IN GC, IN THE HALLWAY, CALM ,BREATHING EVEN AND UNLABORED , NO SS/X OF RESP DISTRESS NOTED. WILL CONT TO MONITOR AND ANTICIPATE PT'S NEEDS.
[2022-08-09] MEDS: MIRTAZAPINE 15 MG TABLET PO SCH (21:33)
[2022-08-09] MEDS: ATORVASTATIN 10 MG TABLET PO SCH (21:33)
[2022-08-09] MEDS: TEMAZEPAM 7.5 MG CAPSULE PO PRN (23:27)
--- NOTE | 2022-08-09 23:28 | NUR ---
RETAIL DEPARTMENT RESET GPS NOTE PT REMAINS AWAKE, EPISODE OF INSOMNIA OBSERVED, PRN RESTORIL 7.5 MG GIVEN ORDERED. WOUND TX TO L. ARM DONE ORDERED AND TOLERATED WELL BY PT. WILL CONT TO MONITOR PT AND ANTICIPATE NEEDS, REPOSITIONED AND KEPT CLEAN AND DRY.
--- NOTE | 2022-08-10 00:33 | NUR ---
GAS WORKER GPS NOTE 1 HR POST RESTORIL- PT REMAINS AWAKE, CONT TO MONITOR ,PROVIDE QUIET ENVIRONMENT, KEPT CLEAN AND DRY, REPOSITIONED.
--- NOTE | 2022-08-10 03:02 | NUR ---
HOSE WRAPPER GPS NOTE PT SLEEPING, EASY TO AROUSE, BREATHING EVEN AND UNLABORED. NO S/SX OF DISTRESS OF DISCOMFORT NOTED, KEPT PT CLEAN AND DRY, REPOSITIONED, CONT TO MONITOR AND ANTICIPATE NEEDS.
--- NOTE | 2022-08-10 06:00 | NUR ---
TRANSPORTATION PLANNING TECHNICIAN GPS NOTE PT SLEPT APPROX 4 HRS DURING SHIFT, AWAKE AT THIS TIME, BREATHING EVEN AND UNLABORED NO S/SX OF DISTRESS NOTED. MED COMPLIANT DURING SHIFT, ALL DUE MEDS GIVEN ORDERED.- AM CARE PROVIDED BY 2 SHIRT TRIMMER STAFFS, Z GUARD AND MEPILEX APPLIED TO SACRUM . SAFETY MEASURES OBSERVED.
--- NOTE | 2022-08-10 06:26 | NUR ---
PUBLIC RELATIONS ANALYST CLOSING NOTE PT IN BED , SLEEPING, EASY TO AROUSE .TOLERATED AM CARE, ALL DUE MEDS GIVEN ORDERED. NO RONI DURING SHIFT, BED ALARM ON, SAFETY MEASURES NOTED. WILL ENDORSE CARE TO AM ONCOMING NURSE.
[2022-08-10] MEDS: PANTOPRAZOLE 40 MG TABLET.DR PO SCH (06:31)
[2022-08-10 08:00] VITALS: BP 106/69
[2022-08-10] MEDS: ENSURE ENLIVE CHOC 237 ML CAN PO SCH ×3 (08:30→17:26)
[2022-08-10] MEDS: LOSARTAN POTASSIUM 25 MG TABLET PO SCH (08:30)
[2022-08-10] MEDS: CLOBETASOL 0.05% OINT 30 GM TUBE TP SCH ×2 (08:31→17:26)
[2022-08-10] MEDS: MEMANTINE HCL 5 MG TABLET PO SCH ×2 (08:32→17:27)
[2022-08-10] MEDS: OLANZAPINE 5 MG TABLET PO SCH ×2 (08:32→17:27)
[2022-08-10] MEDS: MULTIVITAMINS,THERAGRAN 1 UDTAB TABLET PO SCH (08:32)
[2022-08-10] MEDS: APIXABAN 2.5 MG TABLET PO SCH ×2 (08:33→17:28)
[2022-08-10] MEDS: DONEPEZIL 5 MG TABLET PO SCH (08:34)
--- NOTE | 2022-08-10 11:18 | NUR ---
Court Notification: SW attempted to notify Edison ([phone]) and left a voicemail of 5250 hearing.
--- NOTE | 2022-08-10 11:25 | NUR ---
Court Hearing: Patient's 9900 hearing was today and it was upheld for GD.
[2022-08-10 16:00] VITALS: BP 107/60
--- NOTE | 2022-08-10 20:16 | NUR ---
RN NOTES:RECEIVED PATIENT RESTING IN BED, NO S/SX OF ACUTE DISTRESS NOTED. PATIENT GUARDED, CONFUSED, ANXIOUS,FORGETFUL, DISORGANIZED,GIVING INAPPROPRIATE ANSWER TO QUESTIONS, PARANOID, NEEDS FREQUENT REDIRECTION. DENIES SI/HI AT THIS TIME.ENCOURAGE TO VERBALIZED ANY FEELING OR CONCERN, SAFETY MEASURES IN PLACE. WILL CONTINUE TO MONITOR Q15MIN ROUNDS FOR SAFETY AND BEHAVIOR.
[2022-08-10 21:04] VITALS: BP 114/69
[2022-08-10] MEDS: ATORVASTATIN 10 MG TABLET PO SCH (21:09)
[2022-08-10] MEDS: MIRTAZAPINE 15 MG TABLET PO SCH (21:09)
[2022-08-10] MEDS: Z GUARD REMEDY 4 OZ OINT TP PRN (23:14)
[2022-08-11 08:00] VITALS: BP 120/66
[2022-08-11] MEDS: PANTOPRAZOLE 40 MG TABLET.DR PO SCH (08:31)
[2022-08-11] MEDS: ENSURE ENLIVE CHOC 237 ML CAN PO SCH ×3 (08:31→16:15)
[2022-08-11] MEDS: DONEPEZIL 5 MG TABLET PO SCH (08:34)
[2022-08-11] MEDS: MEMANTINE HCL 5 MG TABLET PO SCH ×2 (08:34→16:17)
[2022-08-11] MEDS: MULTIVITAMINS,THERAGRAN 1 UDTAB TABLET PO SCH (08:35)
[2022-08-11] MEDS: LOSARTAN POTASSIUM 25 MG TABLET PO SCH (08:35)
[2022-08-11] MEDS: OLANZAPINE 5 MG TABLET PO SCH ×2 (08:36→16:16)
[2022-08-11] MEDS: APIXABAN 2.5 MG TABLET PO SCH ×2 (08:36→16:17)
[2022-08-11] MEDS: CLOBETASOL 0.05% OINT 30 GM TUBE TP SCH ×2 (08:37→16:15)
[2022-08-11 16:00] VITALS: BP 98/59
--- NOTE | 2022-08-11 20:28 | NUR ---
RN NOTES:PATIENT WATCHING TV IN ACTIVITY ROOM, NO S/SX OF ACUTE DISTRESS NOTED. PATIENT GUARDED, CONFUSED, ANXIOUS,FORGETFUL, DISORGANIZED,GIVING INAPPROPRIATE ANSWER TO QUESTIONS, PARANOID, NEEDS FREQUENT REDIRECTION. DENIES SI/HI AT THIS TIME.ENCOURAGE TO VERBALIZED ANY FEELING OR CONCERN, SAFETY MEASURES IN PLACE. WILL CONTINUE TO MONITOR Q15MIN ROUNDS FOR SAFETY AND BEHAVIOR.
[2022-08-11 20:34] VITALS: BP 102/65
[2022-08-11] MEDS: MIRTAZAPINE 15 MG TABLET PO SCH (21:04)
[2022-08-11] MEDS: ATORVASTATIN 10 MG TABLET PO SCH (21:04)
[2022-08-11] MEDS: Z GUARD REMEDY 4 OZ OINT TP PRN (21:20)
[2022-08-12 07:48] LABS: BASOPHILS % (AUTO) 0.7 % (0.0-2.0); EOSINOPHILS % (AUTO) 3.2 % (0.0-6.0); HEMATOCRIT 35 % (33-45); HEMOGLOBIN 11.6 g/dL (11.5-14.8); LYMPHOCYTES # (AUTO) 0.9 K/uL (0.8-4.8); LYMPHOCYTES % (AUTO) 19.3 % (20.0-44.0); MEAN CORPUSCULAR HGB CONC 33 g/dl (31.0-36.0); MEAN CORPUSCULAR VOLUME 95 fL (82-100); MONOCYTES # (AUTO) 0.5 K/uL (0.1-1.30); MONOCYTES % (AUTO) 9.7 % (2.0-12.0); NEUTROPHILS # (AUTO) 3.3 K/uL (1.8-8.9); NEUTROPHILS % (AUTO) 67.1 % (43.0-81.0); PLATELET COUNT (AUTO) 164 K/uL (150-450); RED BLOOD CELL COUNT(AUTO) 3.63 MIL/uL (4.0-5.2); WHITE BLOOD COUNT (AUTO) 4.9 K/uL (4.3-11.0)
[2022-08-12 08:00] VITALS: BP 116/80
[2022-08-12 08:05] LABS: CALCIUM, SERUM 8.4 mg/dL (8.5-10.1); CREATININE 0.7 mg/dL (0.6-1.3); MAGNESIUM 2.2 mg/dL (1.8-2.4); POTASSIUM 3.7 mmol/L (3.5-5.1)
[2022-08-12] MEDS: ENSURE ENLIVE CHOC 237 ML CAN PO SCH ×3 (08:25→17:48)
[2022-08-12] MEDS: OLANZAPINE 5 MG TABLET PO SCH ×3 (08:30→17:50)
[2022-08-12] MEDS: PANTOPRAZOLE 40 MG TABLET.DR PO SCH (08:30)
[2022-08-12] MEDS: MULTIVITAMINS,THERAGRAN 1 UDTAB TABLET PO SCH (08:31)
[2022-08-12] MEDS: MEMANTINE HCL 5 MG TABLET PO SCH ×2 (08:31→17:50)
[2022-08-12] MEDS: APIXABAN 2.5 MG TABLET PO SCH ×2 (08:31→17:54)
[2022-08-12] MEDS: DONEPEZIL 5 MG TABLET PO SCH (08:31)
[2022-08-12] MEDS: LOSARTAN POTASSIUM 25 MG TABLET PO SCH (08:32)
[2022-08-12] MEDS: CLOBETASOL 0.05% OINT 30 GM TUBE TP SCH ×2 (13:13→17:48)
[2022-08-12 16:00] VITALS: BP 107/59
[2022-08-12 20:12] VITALS: BP 103/73
[2022-08-12] MEDS: ATORVASTATIN 10 MG TABLET PO SCH (21:30)
[2022-08-12] MEDS: MIRTAZAPINE 15 MG TABLET PO SCH (21:30)
--- NOTE | 2022-08-12 22:40 | NUR ---
RN note: Wound dressed on left arm ,no s/s of infection noted.
[2022-08-13] MEDS: TEMAZEPAM 7.5 MG CAPSULE PO PRN (02:02)
--- NOTE | 2022-08-13 02:09 | NUR ---
RN note: Patient noted turning and repositioning self in bed ,trying to climb out of bed,unable to fall asleep.Given Restoril 7.5 mg PO based on my clinical assessment.Will monitor for the effectivity of med within 1 hour.Will continue to monitor q15 min rounds for safety.
[2022-08-13] MEDS: PANTOPRAZOLE 40 MG TABLET.DR PO SCH (07:30)
[2022-08-13 08:00] VITALS: BP 107/69
[2022-08-13] MEDS: APIXABAN 2.5 MG TABLET PO SCH ×2 (08:44→16:16)
[2022-08-13] MEDS: DONEPEZIL 5 MG TABLET PO SCH (08:45)
[2022-08-13] MEDS: MULTIVITAMINS,THERAGRAN 1 UDTAB TABLET PO SCH (08:45)
[2022-08-13] MEDS: MEMANTINE HCL 5 MG TABLET PO SCH ×2 (08:45→16:16)
[2022-08-13] MEDS: LOSARTAN POTASSIUM 25 MG TABLET PO SCH (08:45)
[2022-08-13] MEDS: CLOBETASOL 0.05% OINT 30 GM TUBE TP SCH ×2 (08:46→16:17)
[2022-08-13] MEDS: ENSURE ENLIVE CHOC 237 ML CAN PO SCH ×3 (08:47→16:16)
[2022-08-13] MEDS: OLANZAPINE 5 MG TABLET PO SCH ×3 (09:24→16:16)
[2022-08-13 16:00] VITALS: BP 107/56
[2022-08-13 20:05] VITALS: BP 111/59
[2022-08-13] MEDS: ATORVASTATIN 10 MG TABLET PO SCH (22:28)
[2022-08-13] MEDS: MIRTAZAPINE 15 MG TABLET PO SCH (22:28)
--- NOTE | 2022-08-14 07:00 | NUR ---
RN NOTES: RECEIVED PT IN BED. AWAKE,[id number]. . NOS OB OR CARDIAC DISTRESS NOTED. DENIES NAY PAIN/DISCOMFORTS AT THIS TIME.SAFETY MEASURES MAINTAINED SIDE RAILS UP X 2. CALL LIGHT IN EASY REACH FOR HELP. WILL MONITOR PT ACCORDINGLY.
[2022-08-14] MEDS: PANTOPRAZOLE 40 MG TABLET.DR PO SCH (07:21)
[2022-08-14 08:00] VITALS: BP 101/56
[2022-08-14] MEDS: DONEPEZIL 5 MG TABLET PO SCH (08:53)
[2022-08-14] MEDS: MULTIVITAMINS,THERAGRAN 1 UDTAB TABLET PO SCH (08:53)
[2022-08-14] MEDS: MEMANTINE HCL 5 MG TABLET PO SCH ×2 (08:53→16:13)
[2022-08-14] MEDS: LOSARTAN POTASSIUM 25 MG TABLET PO SCH (08:54)
[2022-08-14] MEDS: OLANZAPINE 5 MG TABLET PO SCH ×4 (08:54→16:13)
[2022-08-14] MEDS: APIXABAN 2.5 MG TABLET PO SCH ×2 (08:56→16:29)
[2022-08-14] MEDS: CLOBETASOL 0.05% OINT 30 GM TUBE TP SCH ×2 (09:11→16:14)
[2022-08-14] MEDS: ENSURE ENLIVE CHOC 237 ML CAN PO SCH ×3 (09:12→16:13)
[2022-08-14 16:13] VITALS: BP 120/59
[2022-08-14 20:28] VITALS: BP 102/56
[2022-08-14] MEDS: ATORVASTATIN 10 MG TABLET PO SCH (21:14)
[2022-08-14] MEDS: MIRTAZAPINE 15 MG TABLET PO SCH (21:14)
[2022-08-15] MEDS: PANTOPRAZOLE 40 MG TABLET.DR PO SCH (07:57)
[2022-08-15 08:00] VITALS: BP 105/71
[2022-08-15] MEDS: ENSURE ENLIVE CHOC 237 ML CAN PO SCH ×3 (08:00→17:05)
[2022-08-15] MEDS: MULTIVITAMINS,THERAGRAN 1 UDTAB TABLET PO SCH (08:43)
[2022-08-15] MEDS: OLANZAPINE 5 MG TABLET PO SCH ×3 (08:43→16:55)
[2022-08-15] MEDS: DONEPEZIL 5 MG TABLET PO SCH (08:46)
[2022-08-15] MEDS: MEMANTINE HCL 5 MG TABLET PO SCH ×2 (08:46→16:55)
[2022-08-15] MEDS: APIXABAN 2.5 MG TABLET PO SCH ×2 (08:46→17:02)
[2022-08-15] MEDS: LOSARTAN POTASSIUM 25 MG TABLET PO SCH (08:47)
[2022-08-15] MEDS: CLOBETASOL 0.05% OINT 30 GM TUBE TP SCH ×2 (09:41→17:10)
--- NOTE | 2022-08-15 11:29 | NUR ---
RN-NOTES MERCURY WASHER AND CHARGE NURSE VERIFIED WITH PATIENT'S DREAD VALE REGARDING CODE STATUS. PER PATIENT IS DNR. CENTRAL SUPPLY WORKER ANA AZAR NOTIFIED.
[2022-08-15 16:00] VITALS: BP 122/67
--- NOTE | 2022-08-15 17:27 | NUR ---
RN-NOTES PATIENT IN THE DAY ROOM UP IN THE KATHY CHAIR,AWAKE,A/O X1 QUIET,CALM, AND GUARDED,NO ACUTE DISTRESS NOTED.COOPERATIVE WITH STAFF .GOOD NIC CARE RENDERED. COMPLIANT WITH MEDICATIONS.NEEDS MAXIMUM ASSIST WITH ADL'S. ALL NEEDS ATTENDED AND ANTICIPATED. WILL CONT. MONITORING FOR SAFETY AND BEHAVIOR.WILL ENDORSE TO INCOMING NURSE FOR CONTINUITY OF CARE.
--- NOTE | 2022-08-15 19:37 | NUR ---
GPS RN NOTES: RECEIVED PATIENT AWAKE SITTING AT THE BELKIS CHAIR, NO S/SX OF ACUTE DISTRESS NOTED. PATIENT GUARDED, CONFUSED, ANXIOUS,FORGETFUL, DISORGANIZED, GIVING INAPPROPRIATE ANSWER TO QUESTIONS, PARANOID, NEEDS FREQUENT REDIRECTION. DENIES SI/HI AT THIS TIME. ENCOURAGE TO VERBALIZED ANY FEELING OR CONCERN, NOTED WITH L HAND WOUND COVERED WITH DRESSING, SAFETY MEASURES IN PLACE. WILL CONTINUE TO MONITOR Q15MIN ROUNDS FOR SAFETY AND BEHAVIOR.
[2022-08-15] MEDS: ATORVASTATIN 10 MG TABLET PO SCH (21:11)
[2022-08-15] MEDS: MIRTAZAPINE 15 MG TABLET PO SCH (21:11)
[2022-08-15 21:15] VITALS: BP 117/69
[2022-08-16] MEDS: PANTOPRAZOLE 40 MG TABLET.DR PO SCH (07:56)
[2022-08-16 08:00] VITALS: BP 150/71
[2022-08-16] MEDS: ENSURE ENLIVE CHOC 237 ML CAN PO SCH ×3 (08:00→16:26)
[2022-08-16] MEDS: MEMANTINE HCL 5 MG TABLET PO SCH ×2 (08:06→16:25)
[2022-08-16] MEDS: OLANZAPINE 5 MG TABLET PO SCH ×3 (08:06→16:25)
[2022-08-16] MEDS: MULTIVITAMINS,THERAGRAN 1 UDTAB TABLET PO SCH (08:06)
[2022-08-16] MEDS: DONEPEZIL 5 MG TABLET PO SCH (08:06)
[2022-08-16] MEDS: LOSARTAN POTASSIUM 25 MG TABLET PO SCH (08:07)
[2022-08-16] MEDS: APIXABAN 2.5 MG TABLET PO SCH ×2 (08:07→16:26)
[2022-08-16] MEDS: CLOBETASOL 0.05% OINT 30 GM TUBE TP SCH ×2 (09:50→16:52)
--- NOTE | 2022-08-16 10:00 | NUR ---
BARBARA Coordination of Care: SW contacted pt's psychiatrist, Dr. Osiris Puga, located at [address] [place] [address] [address], [place] [phone]; , office and left a voicemail to set up a follow up appointment.
--- NOTE | 2022-08-16 13:39 | NUR ---
BARBARA Coordination of Care: Pt will follow up with her psychiatrist, Dr. Osiris Puga, located at [address] [place] [address] [address], [place] [address]; ; fax of records was sent to: ([phone]) and scheduled appointment on August 24 at 2:15PM via telehealth.
[2022-08-16 16:00] VITALS: BP 100/74
[2022-08-16 20:00] VITALS: BP 114/71
--- NOTE | 2022-08-16 20:47 | NUR ---
RN NOTES: PATIENT RESTING IN BED, NO S/SX OF ACUTE DISTRESS NOTED. PATIENT GUARDED, CONFUSED, ANXIOUS,FORGETFUL, DISORGANIZED,GIVING INAPPROPRIATE ANSWER TO QUESTIONS, PARANOID, NEEDS FREQUENT REDIRECTION. DENIES SI/HI AT THIS TIME.ENCOURAGE TO VERBALIZED ANY FEELING OR CONCERN, SAFETY MEASURES IN PLACE. WILL CONTINUE TO MONITOR Q15MIN ROUNDS FOR SAFETY AND BEHAVIOR.
[2022-08-16] MEDS: ATORVASTATIN 10 MG TABLET PO SCH (21:46)
[2022-08-16] MEDS: MIRTAZAPINE 15 MG TABLET PO SCH (21:46)
[2022-08-17 08:00] VITALS: BP 98/73
[2022-08-17] MEDS: OLANZAPINE 5 MG TABLET PO SCH ×3 (08:14→17:10)
[2022-08-17] MEDS: MULTIVITAMINS,THERAGRAN 1 UDTAB TABLET PO SCH (08:14)
[2022-08-17] MEDS: DONEPEZIL 5 MG TABLET PO SCH (08:14)
[2022-08-17] MEDS: APIXABAN 2.5 MG TABLET PO SCH ×2 (08:14→17:10)
[2022-08-17] MEDS: PANTOPRAZOLE 40 MG TABLET.DR PO SCH (08:14)
[2022-08-17] MEDS: MEMANTINE HCL 5 MG TABLET PO SCH ×2 (08:14→17:10)
[2022-08-17] MEDS: ENSURE ENLIVE CHOC 237 ML CAN PO SCH ×3 (08:19→17:11)
[2022-08-17] MEDS: LOSARTAN POTASSIUM 25 MG TABLET PO SCH (08:21)
[2022-08-17] MEDS: CLOBETASOL 0.05% OINT 30 GM TUBE TP SCH ×2 (08:35→17:26)
[2022-08-17 16:00] VITALS: BP 97/57
--- NOTE | 2022-08-17 19:23 | NUR ---
RN-NOTES PATIENT IN THE DAY ROOM UP IN THE KATHY CHAIR,AWAKE,A/O X1 INTERACTING WITH DTR,QUIET,CALM,NO ACUTE DISTRESS NOTED.COOPERATIVE WITH STAFF .GOOD NIC CARE RENDERED. COMPLIANT WITH MEDICATIONS.NEEDS MAXIMUM ASSIST WITH ADL'S. ALL NEEDS ATTENDED AND ANTICIPATED. WILL CONT. MONITORING FOR SAFETY AND BEHAVIOR.WILL ENDORSE TO INCOMING NURSE FOR CONTINUITY OF CARE.
[2022-08-17 20:00] VITALS: BP 106/62
--- NOTE | 2022-08-17 20:19 | NUR ---
RN NOTES: PATIENT SITTING UP IN KATHY CHAIR, NO S/SX OF ACUTE DISTRESS NOTED. PATIENT GUARDED, CONFUSED, ANXIOUS,FORGETFUL, DISORGANIZED,GIVING INAPPROPRIATE ANSWER TO QUESTIONS, PARANOID, NEEDS FREQUENT REDIRECTION. DENIES SI/HI AT THIS TIME.ENCOURAGE TO VERBALIZED ANY FEELING OR CONCERN, SAFETY MEASURES IN PLACE. WILL CONTINUE TO MONITOR Q15MIN ROUNDS FOR SAFETY AND BEHAVIOR.
[2022-08-17] MEDS: ATORVASTATIN 10 MG TABLET PO SCH (21:42)
[2022-08-17] MEDS: MIRTAZAPINE 15 MG TABLET PO SCH (21:42)
[2022-08-18 08:00] VITALS: BP 120/77
[2022-08-18] MEDS: OLANZAPINE 5 MG TABLET PO SCH ×3 (08:50→17:19)
[2022-08-18] MEDS: MULTIVITAMINS,THERAGRAN 1 UDTAB TABLET PO SCH (08:50)
[2022-08-18] MEDS: DONEPEZIL 5 MG TABLET PO SCH (08:51)
[2022-08-18] MEDS: LOSARTAN POTASSIUM 25 MG TABLET PO SCH (08:51)
[2022-08-18] MEDS: MEMANTINE HCL 5 MG TABLET PO SCH ×2 (08:51→17:20)
[2022-08-18] MEDS: PANTOPRAZOLE 40 MG TABLET.DR PO SCH (08:51)
[2022-08-18] MEDS: ENSURE ENLIVE CHOC 237 ML CAN PO SCH ×3 (08:52→17:19)
[2022-08-18] MEDS: APIXABAN 2.5 MG TABLET PO SCH ×2 (08:52→17:20)
[2022-08-18] MEDS: CLOBETASOL 0.05% OINT 30 GM TUBE TP SCH ×2 (09:39→17:21)
--- NOTE | 2022-08-18 10:45 | NUR ---
RN Notes: Received pt. asleep in the gerichair in the hallway. Ate 25% for breakfast, compliant to meds. Pt. is cooperative to care and treatment. Pt. is confused and disoriented. Pt. was oriented to person, day, date, place and situation. No distress and no agitation noted. Will continue to monitor for safety.
--- NOTE | 2022-08-18 12:45 | NUR ---
Pt. is in the room with visitors. Pt. is calm, no distress and no agitation noted. Will continue to monitor for safety. Addendum: 08/18/22 at 1246 by CHANDLER HOLLIDAY RN wrong pt.
[2022-08-18 16:00] VITALS: BP 111/58
--- NOTE | 2022-08-18 20:09 | NUR ---
RN NOTES: PATIENT SITTING UP IN KATHY CHAIR, NO S/SX OF ACUTE DISTRESS NOTED. PATIENT DELUSIONAL TALKING TO SELF, GUARDED, CONFUSED, ANXIOUS,FORGETFUL, DISORGANIZED,GIVING INAPPROPRIATE ANSWER TO QUESTIONS, PARANOID, NEEDS FREQUENT REDIRECTION. DENIES SI/HI AT THIS TIME.ENCOURAGE TO VERBALIZED ANY FEELING OR CONCERN, SAFETY MEASURES N PLACE. WILL CONTINUE TO MONITOR Q15MIN ROUNDS FOR SAFETY AND BEHAVIOR.
[2022-08-18 21:05] VITALS: BP 100/71
[2022-08-18] MEDS: MIRTAZAPINE 15 MG TABLET PO SCH (21:09)
[2022-08-18] MEDS: ATORVASTATIN 10 MG TABLET PO SCH (21:09)
[2022-08-19] MEDS: ENSURE ENLIVE CHOC 237 ML CAN PO SCH ×3 (07:40→17:07)
[2022-08-19] MEDS: PANTOPRAZOLE 40 MG TABLET.DR PO SCH (07:40)
[2022-08-19 08:00] VITALS: BP 90/50
[2022-08-19] MEDS: DONEPEZIL 5 MG TABLET PO SCH (08:56)
[2022-08-19] MEDS: APIXABAN 2.5 MG TABLET PO SCH ×2 (08:57→17:08)
[2022-08-19] MEDS: MULTIVITAMINS,THERAGRAN 1 UDTAB TABLET PO SCH (08:57)
[2022-08-19] MEDS: MEMANTINE HCL 5 MG TABLET PO SCH ×2 (08:57→17:08)
[2022-08-19] MEDS: LOSARTAN POTASSIUM 25 MG TABLET PO SCH (08:58)
[2022-08-19] MEDS: CLOBETASOL 0.05% OINT 30 GM TUBE TP SCH ×2 (08:59→17:13)
[2022-08-19] MEDS: OLANZAPINE 5 MG TABLET PO SCH ×3 (09:01→17:07)
[2022-08-19 12:17] LABS: BASOPHILS % (AUTO) 0.9 % (0.0-2.0); EOSINOPHILS % (AUTO) 3.8 % (0.0-6.0); HEMATOCRIT 36 % (33-45); HEMOGLOBIN 12.1 g/dL (11.5-14.8); LYMPHOCYTES # (AUTO) 0.9 K/uL (0.8-4.8); LYMPHOCYTES % (AUTO) 19.1 % (20.0-44.0); MEAN CORPUSCULAR HGB CONC 33 g/dl (31.0-36.0); MEAN CORPUSCULAR VOLUME 96 fL (82-100); MONOCYTES # (AUTO) 0.3 K/uL (0.1-1.30); MONOCYTES % (AUTO) 6.7 % (2.0-12.0); NEUTROPHILS # (AUTO) 3.3 K/uL (1.8-8.9); NEUTROPHILS % (AUTO) 69.5 % (43.0-81.0); PLATELET COUNT (AUTO) 190 K/uL (150-450); RED BLOOD CELL COUNT(AUTO) 3.78 MIL/uL (4.0-5.2); WHITE BLOOD COUNT (AUTO) 4.7 K/uL (4.3-11.0)
[2022-08-19 12:44] LABS: BILIRUBIN,TOTAL 0.4 mg/dL (0.2-1.0); CALCIUM, SERUM 8.6 mg/dL (8.5-10.1); CREATININE 0.8 mg/dL (0.6-1.3); POTASSIUM 3.9 mmol/L (3.5-5.1); TOTAL PROTEIN, SERUM 5.8 g/dL (6.4-8.2)
[2022-08-19 16:03] VITALS: BP 90/51
[2022-08-19 20:27] VITALS: BP 92/56
[2022-08-19] MEDS: MIRTAZAPINE 15 MG TABLET PO SCH (21:49)
[2022-08-19] MEDS: ATORVASTATIN 10 MG TABLET PO SCH (21:49)
[2022-08-20] MEDS: PANTOPRAZOLE 40 MG TABLET.DR PO SCH (07:44)
[2022-08-20 08:00] VITALS: BP 115/76
[2022-08-20] MEDS: ENSURE ENLIVE CHOC 237 ML CAN PO SCH ×3 (08:27→17:30)
[2022-08-20] MEDS: OLANZAPINE 5 MG TABLET PO SCH ×3 (08:27→17:30)
[2022-08-20] MEDS: DONEPEZIL 5 MG TABLET PO SCH (08:27)
[2022-08-20] MEDS: MEMANTINE HCL 5 MG TABLET PO SCH ×2 (08:28→17:30)
[2022-08-20] MEDS: MULTIVITAMINS,THERAGRAN 1 UDTAB TABLET PO SCH (08:28)
[2022-08-20] MEDS: APIXABAN 2.5 MG TABLET PO SCH ×2 (08:29→17:32)
[2022-08-20] MEDS: LOSARTAN POTASSIUM 25 MG TABLET PO SCH (08:31)
[2022-08-20] MEDS: CLOBETASOL 0.05% OINT 30 GM TUBE TP SCH ×2 (08:31→17:31)
[2022-08-20 16:00] VITALS: BP 106/59
[2022-08-20 20:25] VITALS: BP 95/52
[2022-08-20] MEDS: MIRTAZAPINE 15 MG TABLET PO SCH (21:47)
[2022-08-20] MEDS: TEMAZEPAM 7.5 MG CAPSULE PO PRN (21:47)
[2022-08-20] MEDS: ATORVASTATIN 10 MG TABLET PO SCH (21:47)
[2022-08-21] MEDS: PANTOPRAZOLE 40 MG TABLET.DR PO SCH (06:43)
[2022-08-21 08:00] VITALS: BP 99/59
[2022-08-21] MEDS: ENSURE ENLIVE CHOC 237 ML CAN PO SCH (08:18)
--- NOTE | 2022-08-21 08:18 | NUR ---
SW Discharge Note: Pt will be discharged home located at [address] [facility] [address] where she resides with , Edison Miller ([phone]). Pt will be picked up by her around 10am. Upon discharge, pt appears to be in a euthymic mood and presents with an elated affect. Pt denies suicidal and homicidal ideation as well as auditory and visual hallucinations. Pt appears to be alert and oriented x2. Pt appears to be well groomed and appropriately dressed. Pt appears to be ambulatory with a steady gait. Pt was able to maintain appropriate eye contact and tone of speech. Pt agreed to the discharge plan to return to her home. Pt will follow up with her psychiatrist, Dr. Osiris Puga, located at [address] [place] [address] [address], [place] [address]; ; fax of records was sent to: ([phone]) and scheduled appointment on August 24 at 2:15PM via telehealth. Pt will also follow up with her restaurant bartender, Dr. Candelario, located at [address] [place] [address]; . The multidisciplinary exit care form was done, printed, signed, and given to the patient.
[2022-08-21] MEDS: MULTIVITAMINS,THERAGRAN 1 UDTAB TABLET PO SCH (08:40)
[2022-08-21] MEDS: MEMANTINE HCL 5 MG TABLET PO SCH (08:40)
[2022-08-21] MEDS: DONEPEZIL 5 MG TABLET PO SCH (08:40)
[2022-08-21] MEDS: OLANZAPINE 5 MG TABLET PO SCH (08:41)
[2022-08-21 08:42] VITALS: BP 99/59
[2022-08-21] MEDS: APIXABAN 2.5 MG TABLET PO SCH (08:42)
[2022-08-21] MEDS: LOSARTAN POTASSIUM 25 MG TABLET PO SCH (08:42)
[2022-08-21] MEDS: CLOBETASOL 0.05% OINT 30 GM TUBE TP SCH (08:47)
--- NOTE | 2022-08-21 10:50 | NUR ---
RN-DISCHARGE NOTES PATIENT HAD A DISCHARGE ORDER FROM HERMAN ZHANG ( PSYCHIATRIST) AMIRA ALEGRIA MEDICALLY CLEARED PATIENT FOR DISCHARGE. PATIENT WAS DISCHARGE TO HOME AND WAS BIOPHYSICS PROFESSOR BY DREAD VALE. ALL DISCHARGED RX AND DOCTORS APPOINTMENTS WAS REVIEWED WITH DREAD AND RX WAS GIVEN TO HIM . PATIENT WAS WHEELED DOWN BY THE SHOOTING GALLERY OPERATOR STAFF IN THE LOBBY FOR SAFETY. PATIENT DID NOT VERBALIZE SI/HI,DENIES VISUAL/AUDITORY HALLUCINATIONS AT THE TIME OF DISCHARGE. PATIENT LEFT THE UNIT AWAKE,A/O X2 IN STABLE CONDITION. BP 112/60/ P 86, R17, TEMP. 98 AND O2 SAT OF 100% RA.PATIENT LEFT WITH ALL HER BELONGINGS.
== END 2022-08-21 10:50 | disposition home or self-care (01) | DRG 885 ==
LOC: ER 20:24 → GPS 23:18
PROVIDERS: ADMIT Psychiatry & Neurology Psychiatry; ATTEND Nurse Practitioner Acute Care
DX: F29 Unspecified psychosis not due to a substance or known physiological condition (principal); F32.9 Major depressive disorder, single episode, unspecified; F03.90 Unspecified dementia, unspecified severity, without behavioral disturbance, psychotic disturbance, mood disturbance, and anxiety; E78.5 Hyperlipidemia, unspecified; I10 Essential (primary) hypertension; Z87.891 Personal history of nicotine dependence; Z86.718 Personal history of other venous thrombosis and embolism; Z88.2 Allergy status to sulfonamides; K21.9 Gastro-esophageal reflux disease without esophagitis; Z73.6 Limitation of activities due to disability; F39 Unspecified mood [affective] disorder; R26.89 Other abnormalities of gait and mobility; L89.892 Pressure ulcer of other site, stage 2; L84 Corns and callosities; Z79.01 Long term (current) use of anticoagulants
CPT/HCPCS: 36415; 80048-TC; 80053-TC; 80061-TC; 82962-TC; 83735-TC; 84075-TC; 85025-TC; 87081-TC; 93970-TC; 97110-TC; 97112-TC; 97116-TC; 97530-TC; A6403